=== PATIENT | male | born 1940 | race Two or more races ===

== ENCOUNTER 2017-10-15 04:47 | Inpatient (IN) | payer MEDICARE, OTHER ==
[2017-10-15] VITALS: BP 116/47
[~2017-10-15] VITALS: Ht 165.1 cm; Wt 73.7 kg
[2017-10-15 07:30] VITALS: BP 105/55
[2017-10-15] MEDS ORDERED: ATOR80TA PO (07:57)
[2017-10-15] MEDS ORDERED: SEVE800T8 PO (07:57)
[2017-10-15] MEDS ORDERED: ASPI-1169 PO (07:57)
[2017-10-15] MEDS ORDERED: OMEP20TA5 PO (07:57)
[2017-10-15] MEDS ORDERED: METO25TA6 PO (07:57)
--- NOTE | 2017-10-15 08:44 | NUR ---
STEEL HANDLER ADMITTING NOTES PATIENT ADMITTED DIRECTLY FROM [facility] VIA [facility] ACCOMPANIED BY PARAMEDICS AND DAUGHTER. A/O X 3. VERBALLY RESPONSIVE WITH NO C/O PAIN OR DISCOMFORTS VOICED. ORIENTED PT TO UNIT. 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 V/S TAKEN AND RECORDED: 105/55, P 105, T 98F, R 18. PT ON ROOM AIR, BREATHING EVEN AND UNLABORED WITH SP02 OF 99%. PT PLACED ON TELE-MONITORING WITH CURRENT READING OF V-PACING WITH HR OF 92, NO C/O CHEST PAIN, HEADACHE, N&V VOICED. PT NOTED WITH LESION/WOUND ON LCW WITH NO DRAINAGE NOTED AT THIS TIME. PT WITH IV ACCESS ON LFA INTACT AND PATENT. AV SHUNT NOTED ON RFA WITH + BRUIT SOUND, NO DRAINAGE OR BLEEDING NOTED. SAFETY MEASURES INITIATED. BED PLACED ON LOW/LOCKED POSITION WITH SIDE-RAILS UP X2. CALL LIGHT PLACED WITHIN REACH. WILL CONTINUE TO ASSESS AND MONITOR PT.
[2017-10-15] MEDS ORDERED: ACETAMINOPHEN 325 MG TABLET PO PRN (09:00)
[2017-10-15] MEDS ORDERED: Z GUARD REMEDY 2 OZ OINT TP PRN (09:00)
[2017-10-15 09:53] LABS: BASOPHILS % (AUTO) 0.7 % (0.0-2.0); HEMATOCRIT 30 % (39-51); HEMOGLOBIN 10.2 g/dL (13.5-17.5); LYMPHOCYTES # (AUTO) 1.4 /CMM (0.8-4.8); LYMPHOCYTES % (AUTO) 25.8 % (20.0-44.0); MEAN CORPUSCULAR HGB CONC 34 g/dl (31.0-36.0); MEAN CORPUSCULAR VOLUME 98 fL (80-96); MONOCYTES # (AUTO) 0.4 /CMM (0.1-1.30); MONOCYTES % (AUTO) 8.2 % (2.0-12.0); NEUTROPHILS # (AUTO) 3.1 /CMM (1.8-8.9); NEUTROPHILS % (AUTO) 58.3 % (43.0-81.0); PLATELET COUNT (AUTO) 147 /CMM (150-450); RDW COEFFICIENT OF VARIATION 15.8 (11.5-15.0); RED BLOOD CELL COUNT(AUTO) 3.04 MIL/uL (4.5-6.0); WHITE BLOOD COUNT (AUTO) 5.3 K/uL (4.3-11.0)
[2017-10-15 10:07] LABS: TROPONIN I 0.018 ng/mL (0.00-0.056)
[2017-10-15 10:08] LABS: ALANINE AMINOTRANSFERASE 16 U/L (12-78); ALBUMIN 2.8 g/dL (3.4-5.0); ALKALINE PHOSPHATASE 158 U/L (46-116); ASPARTATE AMINOTRANSFERASE 22 U/L (15-37); BILIRUBIN,TOTAL 0.7 mg/dL (0.2-1.0); CALCIUM, SERUM 8.7 mg/dL (8.5-10.1); CARBON DIOXIDE 35 mmol/L (21-32); CHLORIDE 95 mmol/L (98-107); CREATININE 5.3 mg/dL (0.6-1.3); GLUCOSE 85 mg/dL (74-106); MAGNESIUM 2.1 mg/dL (1.8-2.4); PHOSPHORUS 4.9 mg/dL (2.5-4.9); POTASSIUM 3.9 mmol/L (3.5-5.1); SODIUM SERUM 136 mmol/L (136-145); TOTAL PROTEIN, SERUM 8.6 g/dL (6.4-8.2); UREA NITROGEN, BLOOD 28 mg/dL (7-18)
[2017-10-15 10:14] LABS: CHOLESTEROL 125 mg/dL (<200); HDL CHOLESTEROL 36 mg/dL (40-60); LDL 82 mg/dL (0-99); THYROID STIMULATING HORMONE 0.969 uIU/mL (0.358-3.74); TRIGLYCERIDES 65 mg/dL (30-150)
[2017-10-15] MEDS ORDERED: IOHEXOL-300 100 ML VIAL IV ONE (11:46)
[2017-10-15] MEDS ORDERED: IV NS 0.9% 250 ML IV ONE (11:47)
[2017-10-15] MEDS ORDERED: CT SWABBABLE VALVE TRANS SET 1 EA INFUS.SET MC ONE (11:47)
[2017-10-15 12:00] VITALS: BP 108/60
[2017-10-15] MEDS ORDERED: PIPERACILLIN /TAZOBACTAM 3.375 G in IV D5W 50 ML IV SCH (12:00)
--- NOTE | 2017-10-15 12:17 | NUR ---
RN NOTES PATIENT ON HEMODIALYSIS IN PROGRESS AT THIS TIME. PRE V/S TAKEN; BP 94/52, P 83, R 18, T 97.8F AND SP02 98%. WILL CONTINUE TO MONITOR.
[2017-10-15] MEDS ORDERED: FEE PK DOSING 1 MIN EA MC ONE (12:58)
[2017-10-15] MEDS: SEVELAMER CARBONATE 800 MG TABLET PO SCH ×2 (13:14→17:51)
[2017-10-15] MEDS: PIPERACILLIN /TAZOBACTAM 2.25 G in IV D5W 50 ML IV SCH ×2 (13:32→20:18)
--- NOTE | 2017-10-15 13:51 | NUR ---
RN NOTES PATIENT SEEN AND EVALUATED BY LASHAY DANIELS AND DID LEFT CHEST WALL DEBRIDEMENT WITH CONSENT FROM PT. (CONSENT SIGNED BY PT). WOUND SPECIMEN ALSO COLLECTED FOR WOUND CULTURE. WILL CONTINUE TO MONITOR.
[2017-10-15] MEDS ORDERED: VANCOMYCIN 1 GM in IV D5W 250 ML IV ONE (14:00)
[2017-10-15] MEDS ORDERED: HYDROCODONE/APAP 5/325MG 1 EACH TABLET PO PRN (15:00)
--- NOTE | 2017-10-15 15:26 | NUR ---
RN NOTES HEMODIALYSIS JUST FINISHED WITH 1,000ML OUTPUT. POST HD V/S : 122/51, P 85, R 18, T 97.8RF. NO ACUTE SIGNS OF DISTRESS NOTED. DRESSING APPLIED TO AV SHUNT ON RIGHT UPPER ARM BY DIALYSIS NURSE, NO BLEEDING NOTED. WILL CONTINUE TO MONITOR.
[2017-10-15 16:00] VITALS: BP 98/60
[2017-10-15] MEDS: METOPROLOL TARTRATE 25 MG TABLET PO SCH (16:52)
[2017-10-15] MEDS: DOCUSATE SODIUM 100 MG CAPSULE PO SCH (16:53)
--- NOTE | 2017-10-15 18:37 | NUR ---
TELE/RN CLOSING NOTES PATIENT AWAKE AND RESTING IN BED WITH FAMILY AT BEDSIDE AT THIS TIME. A/O X3. GERMAN SPEAKING. S/P HEMODIALYSIS TODAY, NO DELAYED ADVERSE REACTIONS NOTED. ON ROOM AIR, RESPIRATIONS EVEN AND UNLABORED, NO SOB NOTED. ON TELE- MONITORING WITH CURRENT READING OF V-PACING AND AFIB WITH HR OF 78. IV ACCESS ON LEFT FA G#20 INTACT AND PATENT, FLUSHES EASILY. HOB KEPT ELEVATED. MAINTAINED BED IN LOW/LOCKED POSITION. CALL LIGHT WITHIN REACH. ALL NEEDS AND CARE ATTENDED WELL. WILL ENDORSED TO CONSTRUCTION SECRETARY NURSE FOR ELSIE.
--- NOTE | 2017-10-15 19:35 | NUR ---
POWER PLANT OPERATORS SUPERVISOR INITIAL NOTE PT IS IN BED AWAKE AND ALERT. FAMILY AT BEDSIDE. NO SIGNS OF SOB OR DISTRESS, BREATHING EVENLY AND UNLABORED ON RA. DEBRIDEMENT AND DRESSING CHANGED WAS DONE BY KATHY DANIELS TODAY, DRESSING IS INTACT WITH NO SIGNS OF LEAKAGE. IV ACCESS IS INTACT AND PATENT. KAYLA AV SHUNT IN PLACE. PT HAD HD TODAY AND 1,000 ML WERE TAKEN OUT. DENIES PAIN AT THIS TIME. BED IS IN LOW AND LOCKED POSITION, CALL LIGHT WITHIN REACH. WILL CONTINUE TO MONITOR PT.
[2017-10-15 20:00] VITALS: BP 92/51
[2017-10-16] VITALS (7 sets, daily range): BP systolic 102–120; BP diastolic 47–70
[2017-10-16] MEDS: PIPERACILLIN /TAZOBACTAM 2.25 G in IV D5W 50 ML IV SCH ×2 (04:37→12:26)
--- NOTE | 2017-10-16 06:32 | NUR ---
WRAPPER SIZER CLOSING NOTE PT IS IN BED RESTING. NO SIGNS OF SOB OR DISTRESS. DENIES PAIN. TELE MONITOR SHOWS A FIB WITH V PACING AT 85. NO ACUTE CHANGES THROUGHOUT THE SHIFT. ALL NEEDS WERE ANTICIPATED AND MET. BED IS IN LOW AND LOCKED POSITION, CALL LIGHT WITHIN REACH. WILL ENDORSE TO DAYSHIFT
[2017-10-16 07:15] LABS: BASOPHILS % (AUTO) 0.8 % (0.0-2.0); EOSINOPHILS % (AUTO) 9.2 % (0.0-6.0); HEMATOCRIT 31 % (39-51); HEMOGLOBIN 10.3 g/dL (13.5-17.5); LYMPHOCYTES # (AUTO) 1.3 /CMM (0.8-4.8); LYMPHOCYTES % (AUTO) 23.5 % (20.0-44.0); MEAN CORPUSCULAR HGB CONC 33 g/dl (31.0-36.0); MEAN CORPUSCULAR VOLUME 99 fL (80-96); MONOCYTES # (AUTO) 0.5 /CMM (0.1-1.30); MONOCYTES % (AUTO) 8.7 % (2.0-12.0); NEUTROPHILS # (AUTO) 3.2 /CMM (1.8-8.9); NEUTROPHILS % (AUTO) 57.8 % (43.0-81.0); PLATELET COUNT (AUTO) 141 /CMM (150-450); RDW COEFFICIENT OF VARIATION 17.1 (11.5-15.0); RED BLOOD CELL COUNT(AUTO) 3.12 MIL/uL (4.5-6.0); WHITE BLOOD COUNT (AUTO) 5.6 K/uL (4.3-11.0)
[2017-10-16 07:19] LABS: CALCIUM, SERUM 8.6 mg/dL (8.5-10.1); CARBON DIOXIDE 31 mmol/L (21-32); CHLORIDE 96 mmol/L (98-107); CREATININE 5.2 mg/dL (0.6-1.3); GLUCOSE 89 mg/dL (74-106); POTASSIUM 4.2 mmol/L (3.5-5.1); SODIUM SERUM 135 mmol/L (136-145); UREA NITROGEN, BLOOD 27 mg/dL (7-18)
--- NOTE | 2017-10-16 07:25 | NUR ---
TELE/RN OPENING NOTES PATIENT RECEIVED AWAKE IN BED IN NO ACUTE SIGNS OF DISTRESS. A/O X3, KISWAHILI SPEAKING, DENIES PAIN OR DISCOMFORTS AT THIS TIME. ON ROOM AIR, RESPIRATIONS EVEN AND UNLABORED. PT ON TELE- MONITORING WITH CURRENT READING OF V-PACING AND AFIB WITH HR OF 91. DRESSING ON LCW IN PLACE, CLEAN AND DRY. KAYLA AV SHUNT IN PLACE. IV ACCESS ON LEFT FA G#20 INTACT AND PATENT, FLUSHES EASILY. HOB KEPT ELEVATED. BED IN LOW/LOCKED POSITION. CALL LIGHT WITHIN REACH. WILL CONTINUE TO MONITOR PT.
[2017-10-16] MEDS: PANTOPRAZOLE 40 MG TABLET.DR PO SCH (08:00)
[2017-10-16] MEDS: SEVELAMER CARBONATE 800 MG TABLET PO SCH ×3 (08:00→17:35)
[2017-10-16] MEDS: DOCUSATE SODIUM 100 MG CAPSULE PO SCH ×2 (08:05→16:46)
[2017-10-16] MEDS: ASPIRIN 81 MG TAB.CHEW PO SCH (08:05)
[2017-10-16] MEDS: METOPROLOL TARTRATE 25 MG TABLET PO SCH ×2 (08:06→16:47)
[2017-10-16] MEDS ORDERED: VANCOMYCIN 500 MG in IV D5W 100 ML IV PRN (09:00)
--- NOTE | 2017-10-16 18:11 | NUR ---
MS RN CLOSING NOTES PATIENT IN BED RESTING AT MODERATE HIGH BACKREST. FAMILY AT BEDSIDE. A/O X3. DJIBOUTIAN SPEAKING. NO SIGNIFICANT CHANGES NOTED THROUGHOUT THE DAY. PT TOLERATING ROOM AIR WITH NO SOB NOTED. IV ACCESS ON LEFT FA G#20 INTACT AND PATENT, FLUSHES EASILY. HOB KEPT ELEVATED. MAINTAINED BED IN LOW/LOCKED POSITION. CALL LIGHT WITHIN REACH. ALL NEEDS AND CARE ATTENDED WELL. WILL ENDORSED TO PROJECT ADMINISTRATOR NURSE FOR ELSIE.
[2017-10-16] MEDS: ATORVASTATIN 40 MG TABLET PO SCH (21:03)
[2017-10-17] MEDS: HYDROCODONE/APAP 5/325MG 1 EACH TABLET PO PRN (00:36)
[2017-10-17] MEDS: MAGNESIUM HYDROXIDE 30 ML UDC PO PRN ×2 (00:36→21:43)
--- NOTE | 2017-10-17 06:06 | NUR ---
MS RN NOTES AWAKE & RESPONSIVE. NOT IN ANY DISTRESS. NO SOB NOTED. DENIES ANY PAIN OR DISCOMFORT AT THIS TIME. WITH IV-HL PATENT & INTACT. MONITORED ACCORDINGLY. CALL LIGHT WITH REACH. BED IN LOWEST POSITION. SR UP X 2 FOR SAFETY. WILL ENDORSE TO NEXT SHIFT.
[2017-10-17 07:12] LABS: CALCIUM, SERUM 8.5 mg/dL (8.5-10.1); CARBON DIOXIDE 30 mmol/L (21-32); CHLORIDE 94 mmol/L (98-107); CREATININE 6.8 mg/dL (0.6-1.3); GLUCOSE 82 mg/dL (74-106); POTASSIUM 4.6 mmol/L (3.5-5.1); SODIUM SERUM 133 mmol/L (136-145); UREA NITROGEN, BLOOD 37 mg/dL (7-18)
--- NOTE | 2017-10-17 07:19 | NUR ---
MS RN OPENING NOTE PATIENT RESTING COMFORTABLY AT THIS TIME. NO SOB OR DISTRESS NOTED. NO FACIAL GRIMACING NOTED. ABLE TO COMMUNICATE NEEDS. ON ROOM AIR TOLERATING WELL. IV ON LEFT FOREARM 20G INTACT AND PATENT NO REDNESS OR SWELLING NOTED, NO IV FLUIDS RUNNING AT THIS TIME. HEMODIALYSIS TODAY. WILL CONTINUE TO MONITOR THROUGHOUT SHIFT
[2017-10-17 08:00] VITALS: BP 107/59
[2017-10-17] MEDS: SEVELAMER CARBONATE 800 MG TABLET PO SCH ×3 (08:41→17:33)
[2017-10-17] MEDS: DOCUSATE SODIUM 100 MG CAPSULE PO SCH ×2 (08:42→17:33)
[2017-10-17] MEDS: ASPIRIN 81 MG TAB.CHEW PO SCH (08:42)
[2017-10-17] MEDS: METOPROLOL TARTRATE 25 MG TABLET PO SCH ×2 (08:42→17:34)
[2017-10-17] MEDS: PANTOPRAZOLE 40 MG TABLET.DR PO SCH (08:42)
--- NOTE | 2017-10-17 08:49 | NUR ---
MS RN NOTE ASA HELD DUE TO HEMODIALYSIS AND METOPROLOL NOT GIVEN DUE TO DECREASED BP: 107/56 P:62. AWARE. WILL CONTINUE TO MONITOR
--- NOTE | 2017-10-17 13:08 | NUR ---
MS RN NOTE UNABLE TO GIVE MEDICATION AT SCHEDULED TIME DUE TO PATIENT RECEIVING HEMODIALYSIS.
--- NOTE | 2017-10-17 13:24 | NUR ---
MS RN NOTE CALLED DR. WILLIS FOR EPOGEN ORDER. EPOGEN 4,000 UNITS SUBQ x1 WITH HD. ORDERS NOTED AND CARRIED OUT.
[2017-10-17] MEDS ORDERED: EPOETIN ALFA (4000 UNIT) 4,000 UNIT/ML VIAL SQ ONE (13:30)
--- NOTE | 2017-10-17 14:30 | NUR ---
MS RN NOTE WOUND TREATMENT DONE FOR SCALP AND LEFT CHEST WALL PACEMAKER AREA. CLEANED, AND KEPT DRY.
--- NOTE | 2017-10-17 15:40 | NUR ---
RECEIVED REPORT FROM PRIMARY NURSE FOR ELSIE
--- NOTE | 2017-10-17 15:48 | NUR ---
MS RN CLOSING NOTE REPORT GIVEN TO CHENCHO CARIAS FOR CONTINUITY OF CARE. PATIENT IN STABLE CONDITION AND RESTING AT THIS TIME
[2017-10-17 17:00] VITALS: BP 107/58
--- NOTE | 2017-10-17 18:42 | NUR ---
MS RN CLOSING NOTE PATIENT IS A/O X3, AWAKE AND RESPONSIVE. KINYARWANDA SPEAKING. PATIENT IS IN IN BED. BED IS LOCKED, IN LOWEST POSITION, SITE RAILS UP X2. PATIE T IS AMBULATORY AND ORIENTED TO OWN ABILITIES. DENIES PAIN/DISCOMFORT. WILL ENDORSE TO THE SEO STRATEGIST NORSE FOR ELSIE.
[2017-10-17 20:00] VITALS: BP 103/60
[2017-10-17] MEDS: ATORVASTATIN 40 MG TABLET PO SCH (21:07)
[2017-10-18] MEDS: HYDROCODONE/APAP 5/325MG 1 EACH TABLET PO PRN (00:55)
--- NOTE | 2017-10-18 07:10 | NUR ---
RN NOTES PATIENT ASLEEP BUT EASILY AROUSABLE. NO SOB OR DISTRESS NOTED. NO FACIAL GRIMACING NOTED. ABLE TO COMMUNICATE NEEDS. ON ROOM AIR TOLERATING WELL. IV ON LEFT FOREARM 20G INTACT AND PATENT NO REDNESS OR SWELLING NOTED, NO IV FLUIDS RUNNING AT THIS TIME. CALL LIGHT WITHIN REACH, SAFETY MEASURES IN PLACED, WILL CONTINUE TO MONITOR.
[2017-10-18 08:00] VITALS: BP 105/51
[2017-10-18 08:12] VITALS: BP 105/51
[2017-10-18] MEDS: METOPROLOL TARTRATE 25 MG TABLET PO SCH (08:12)
[2017-10-18] MEDS: PANTOPRAZOLE 40 MG TABLET.DR PO SCH (08:48)
[2017-10-18] MEDS: ASPIRIN 81 MG TAB.CHEW PO SCH (08:49)
[2017-10-18] MEDS: DOCUSATE SODIUM 100 MG CAPSULE PO SCH (08:49)
[2017-10-18] MEDS: SEVELAMER CARBONATE 800 MG TABLET PO SCH ×2 (08:49→12:44)
[2017-10-18] MEDS ORDERED: RXVAN XX (11:01)
--- NOTE | 2017-10-18 11:49 | NUR ---
WOUND CARE CONSULT WOUND CARE RECEIVED CONSULT FOR PRESENCE OF WOUNDS. WOUND CARE WILL DEFER CONSULT AND ALL TREATMENT PLANS TO SURGICAL TEAM WHO ARE CURRENTLY FOLLOWING. PATIENT WITH TINO AT 19.
--- NOTE | 2017-10-18 13:25 | NUR ---
POWER MACHINE OPERATOR NOTE PATIENT A/OX3, GREEK SPEAKING, MASS SPECTROSCOPIST TRANSLATED FOR DISCHARGE INSTRUCTIONS, PATIENT VERBALIZED UNDERSTANDING OF FOLLOW UP APPOINTMENTS, AND WOUND TREATMENT AND MEDICATION REGIMEN. PLACED A CALL TO DAUGHTER, LEFT A MESSAGE. SKIN ASSESSMENT COMPLETED, NO CHANGES, PHOTOS TAKEN LAST NIGHT, WOUND TREATMENT RENDERED ORDERED, HOME HEALTH HAS BEEN SET UP BY REGULATORY AFFAIRS INTERN, MIDLINE INSERTED ON YASEMIN #20 FOR HALF-WAY ANTIBIOTIC X7 DOSE PER DR. TORRE, PHARMACY TO DOSE. PIV ON LFA REMOVED, KEPT MIDLINE. BELONGINGS RECONCILED AND COMPLETE, ALL DISCHARGE PAPERWORKS SENT TO PATIENT. PATIENT LEFT THE FACILITY VIA TAXI IN NO DISTRESS.
== END 2017-10-18 13:20 | disposition home health service (06) | DRG 570 ==
LOC: EDSEX → TELE 07:00 → MED 10-16 09:09
PROVIDERS: ADMIT Internal Medicine; ATTEND Internal Medicine
PROC: 0JB60ZZ Excision of Chest Subcutaneous Tissue and Fascia, Open Approach (ICD-10-PCS; principal; 2017-10-15)
PROC: 5A1D70Z Performance of Urinary Filtration, Intermittent, Less than 6 Hours Per Day (ICD-10-PCS; 2017-10-15)
PROC: 5A1D70Z Performance of Urinary Filtration, Intermittent, Less than 6 Hours Per Day (ICD-10-PCS; 2017-10-17)
PROC: 05H633Z Insertion of Infusion Device into Left Subclavian Vein, Percutaneous Approach (ICD-10-PCS; 2017-10-18)
PROC: B547ZZA Ultrasonography of Left Subclavian Vein, Guidance (ICD-10-PCS; 2017-10-18)
DX: L08.9 Local infection of the skin and subcutaneous tissue, unspecified (principal); N18.6 End stage renal disease; E44.0 Moderate protein-calorie malnutrition; D69.6 Thrombocytopenia, unspecified; E88.09 Other disorders of plasma-protein metabolism, not elsewhere classified; I12.0 Hypertensive chronic kidney disease with stage 5 chronic kidney disease or end stage renal disease; E83.9 Disorder of mineral metabolism, unspecified; I48.92 Unspecified atrial flutter; S21.102A Unspecified open wound of left front wall of thorax without penetration into thoracic cavity, initial encounter; K59.00 Constipation, unspecified; D63.1 Anemia in chronic kidney disease; E78.5 Hyperlipidemia, unspecified; F17.210 Nicotine dependence, cigarettes, uncomplicated; Z95.0 Presence of cardiac pacemaker; Z99.2 Dependence on renal dialysis; S01.00XA Unspecified open wound of scalp, initial encounter; X58.XXXA Exposure to other specified factors, initial encounter; Y93.9 Activity, unspecified; Y92.009 Unspecified place in unspecified non-institutional (private) residence as the place of occurrence of the external cause; Z68.27 Body mass index [BMI] 27.0-27.9, adult; I51.7 Cardiomegaly
CPT/HCPCS: 36415; 36569; 71045-TC; 71260-TC; 80048-TC; 80053-TC; 80061-TC; 80202-TC; 83605-TC; 83735-TC; 84100-TC; 84443-TC; 84484-TC; 85025-TC; 87040-TC; 87070-TC; 87081-TC; 90935-TC; 93307-TC; A6402; A6403; A6407; J0885; J2543; J3370; J7050; J7060; Q9967

== ENCOUNTER 2017-10-19 13:10 | Outpatient (CLI) | payer MEDICARE, OTHER ==
[~2017-10-19 13:10] MED LIST: ASPI-1169 PO; ATOR80TA PO; METO25TA6 PO; OMEP20TA5 PO; RXVAN XX; SEVE800T8 PO
== END 2017-10-19 23:59 | disposition home or self-care (01) ==
LOC: MSC 13:10
PROVIDERS: ATTEND Internal Medicine
DX: Z48.817 Encounter for surgical aftercare following surgery on the skin and subcutaneous tissue (principal); Z95.0 Presence of cardiac pacemaker; I12.0 Hypertensive chronic kidney disease with stage 5 chronic kidney disease or end stage renal disease; N18.6 End stage renal disease; Z99.2 Dependence on renal dialysis; F17.200 Nicotine dependence, unspecified, uncomplicated; L98.9 Disorder of the skin and subcutaneous tissue, unspecified; I48.92 Unspecified atrial flutter; Z79.82 Long term (current) use of aspirin; D64.89 Other specified anemias; E78.5 Hyperlipidemia, unspecified; E44.0 Moderate protein-calorie malnutrition; E88.09 Other disorders of plasma-protein metabolism, not elsewhere classified

== ENCOUNTER 2017-10-21 12:27 | Outpatient (CLI) | payer MEDICARE, OTHER ==
[2017-10-19 13:15] VITALS: BP 152/37
== END 2017-10-21 23:59 | disposition home or self-care (01) ==
LOC: WOU 12:27
PROVIDERS: ATTEND Surgery
DX: C44.42 Squamous cell carcinoma of skin of scalp and neck (principal); S01.01XA Laceration without foreign body of scalp, initial encounter; L02.213 Cutaneous abscess of chest wall; X58.XXXA Exposure to other specified factors, initial encounter; Y92.89 Other specified places as the place of occurrence of the external cause
CPT/HCPCS: 11043; 11100; 11101; 88305 ×2; A6402; J3490

== ENCOUNTER 2017-10-28 12:30 | Outpatient (CLI) | payer MEDICARE, OTHER | END 2017-10-28 23:59 | disposition home health service (06) | LOC: WOU 12:30 | PROVIDERS: ATTEND Surgery | DX: S01.01XD Laceration without foreign body of scalp, subsequent encounter (principal); C44.42 Squamous cell carcinoma of skin of scalp and neck; L02.213 Cutaneous abscess of chest wall; R21 Rash and other nonspecific skin eruption; X58.XXXD Exposure to other specified factors, subsequent encounter; Y92.89 Other specified places as the place of occurrence of the external cause; Z95.0 Presence of cardiac pacemaker | CPT/HCPCS: A6402; G0463 ==

== ENCOUNTER 2017-11-18 13:00 | Outpatient (CLI) | payer MEDICARE, OTHER | END 2017-11-18 23:59 | disposition home health service (06) | LOC: WOU 13:00 | PROVIDERS: ATTEND Surgery | DX: C44.42 Squamous cell carcinoma of skin of scalp and neck (principal); T82.7XXD Infection and inflammatory reaction due to other cardiac and vascular devices, implants and grafts, subsequent encounter; L02.213 Cutaneous abscess of chest wall | CPT/HCPCS: A6402; G0463 ==

== ENCOUNTER 2017-11-25 12:36 | Outpatient (CLI) | payer MEDICARE, OTHER | END 2017-11-25 23:59 | disposition home or self-care (01) | LOC: WOU 12:36 | PROVIDERS: ATTEND Surgery | DX: C44.42 Squamous cell carcinoma of skin of scalp and neck (principal); T82.7XXD Infection and inflammatory reaction due to other cardiac and vascular devices, implants and grafts, subsequent encounter; R21 Rash and other nonspecific skin eruption | CPT/HCPCS: A6402; G0463 ==

== ENCOUNTER 2017-11-26 10:20 | Outpatient (CLI) | payer MEDICARE, OTHER ==
[2017-11-26 10:52] LABS: BASOPHILS % (AUTO) 0.3 % (0.0-2.0); HEMATOCRIT 32 % (39-51); HEMOGLOBIN 10.3 g/dL (13.5-17.5); LYMPHOCYTES # (AUTO) 1.6 /CMM (0.8-4.8); LYMPHOCYTES % (AUTO) 26.2 % (20.0-44.0); MEAN CORPUSCULAR HGB CONC 32 g/dl (31.0-36.0); MEAN CORPUSCULAR VOLUME 101 fL (80-96); MONOCYTES # (AUTO) 0.5 /CMM (0.1-1.30); MONOCYTES % (AUTO) 7.5 % (2.0-12.0); NEUTROPHILS # (AUTO) 3.6 /CMM (1.8-8.9); PLATELET COUNT (AUTO) 202 /CMM (150-450); RDW COEFFICIENT OF VARIATION 17.8 (11.5-15.0); RED BLOOD CELL COUNT(AUTO) 3.16 MIL/uL (4.5-6.0); WHITE BLOOD COUNT (AUTO) 6.3 K/uL (4.3-11.0)
[2017-11-26 11:04] LABS: INR 1.14 (0.87-1.13)
[2017-11-26 11:06] LABS: CALCIUM, SERUM 8.9 mg/dL (8.5-10.1); CARBON DIOXIDE 28 mmol/L (21-32); CHLORIDE 99 mmol/L (98-107); CREATININE 6.7 mg/dL (0.6-1.3); GLUCOSE 113 mg/dL (74-106); POTASSIUM 4.5 mmol/L (3.5-5.1); SODIUM SERUM 137 mmol/L (136-145); UREA NITROGEN, BLOOD 45 mg/dL (7-18)
== END 2017-11-26 23:59 | disposition home or self-care (01) ==
LOC: LAB 10:20
PROVIDERS: ATTEND Surgery
DX: Z01.818 Encounter for other preprocedural examination (principal); C44.40 Unspecified malignant neoplasm of skin of scalp and neck; R94.31 Abnormal electrocardiogram [ECG] [EKG]
CPT/HCPCS: 36415; 71046; 80048-TC; 85025-TC; 85730-TC

== ENCOUNTER 2017-12-02 05:53 | Inpatient (IN) | payer MEDICARE, OTHER ==
[~2017-12-02] VITALS: Ht 152.4 cm; Wt 73.9 kg
--- NOTE | 2017-12-02 06:21 | NUR ---
RN MS NOTES PATIENT IS HERE FOR RESECTION OF SCALP CANCER AMD VAC PLACEMENT, VITAL SIGNS OBTAINED WNL NO DISTRESS, RESPIRATIONS EVEN AND UNLABORED, AMBULATORY CONSENTS SIGNED BY PATIENT, REMAINS IN STABLE CONDITION AT THIS TIME, WILL CONTINUE TO ENDORSE TO NEXT SHIFT.
[2017-12-02 07:08] VITALS: BP 105/56
[2017-12-02] MEDS ORDERED: BUPIVACAINE 0.25% 75 MG/30 ML VIAL ONE (07:19)
[2017-12-02] MEDS ORDERED: LIDOCAINE 0.5%-EPI 1:200,000 50 ML VIAL ONE (07:19)
--- NOTE | 2017-12-02 07:25 | NUR ---
M/S RN - Assessment Patient in bed awake, A/O x 3, denies pain, no apparent distress seen. Patient NPO since midnight for scheduled resection of scalp carcinoma and vac placement and resection of left upper ext mass with Dr. Franklin Jimenez. Consent signed by the patient. Attempted to place saline lock at this time but unsuccessful due to poor peripheral veins, will endorse to OR nurse accordingly. Family at bedside updated on plan of care.
--- NOTE | 2017-12-02 07:35 | NUR ---
M/S RN - Notes Patient taken to OR, pre-op checklist completed, vitals stable, endorsed to accordingly.
[2017-12-02] MEDS ORDERED: ANESTHESIA TRAY IN PYXIS 1 EA TRAY MC ONE (08:09)
[2017-12-02] MEDS ORDERED: SEVOFLURANE 250 ML BOTTLE IH ONE (08:46)
[2017-12-02 10:54] LABS: ABG BASE EXCESS -4.9 mmol/L; ABG OXYGEN SATURATION 97.4 % (92.0-98.5); ABG PCO2 65.7 mmHg (35.0-45.0); ABG PH 7.185 (7.350-7.450); ABG PO2 136.7 mmHg (75.0-100.0); AaDO2 218.8 mmHg; COHb 0.3 % (0.5-1.5); MetHb 0.8 % (0.0-1.5); O2Hb 96.3 % (94.0-97.0); SITE, ABG Left Brachial; VENT MODE, BG 10/L SIMPLE MASK
[2017-12-02] MEDS ORDERED: HYDROCODONE/APAP 5/325MG 1 EACH TABLET PO PRN (11:00)
[2017-12-02] MEDS ORDERED: ACETAMINOPHEN 325 MG TABLET PO PRN (11:00)
[2017-12-02] MEDS ORDERED: Z GUARD REMEDY 2 OZ OINT TP PRN (11:00)
[2017-12-02] MEDS ORDERED: MAG HYDROX/AL HYDROX/SIMETH 30 ML UDC PO PRN (11:00)
[2017-12-02] MEDS ORDERED: ONDANSETRON HCL/PF 4 MG/2 ML VIAL IVP PRN (11:00)
[2017-12-02 11:30] VITALS: BP 149/68
--- NOTE | 2017-12-02 11:30 | NUR ---
M/S RN - Notes Patient came back from PACU awake, A/O x 3, denies pain, no apparent distress seen, tolerating room air. S/P resection of scalp lesion and LFA mass. Right head wound vac in place, dressing on the LFA is C/D/I. Dressing change to be done by Md only, unable to take photo at this time. Vital signs monitored per protocol. Per OR report, pt with critical ABG result, relayed to LASHAY Damian with order to do repeat ABG. All orders noted and implemented. Will continue to monitor closely.
[2017-12-02 12:24] LABS: ABG BASE EXCESS 2.4 mmol/L; ABG PCO2 50.3 mmHg (35.0-45.0); ABG PH 7.369 (7.350-7.450); ABG PO2 96.5 mmHg (75.0-100.0); AaDO2 43.8 mmHg; COHb 0.3 % (0.5-1.5); MetHb 0.8 % (0.0-1.5); O2Hb 94.9 % (94.0-97.0); SITE, ABG Left Brachial; VENT MODE, BG NASAL CANNULA
[2017-12-02 16:00] VITALS: BP 119/54
--- NOTE | 2017-12-02 18:49 | NUR ---
AUTO CLAIM REPRESENTATIVE CLOSING NOTES Patient remains in bed, easily arousable. Croatian language preferrence. Famiy at bedside. Hemodialysis treatment done with 1L output: patient tolerated well. TELE monitor shows Afib; HR 99. No complaints of any pain or discomfort. Safety measures in place. Bed in lowest position with call light within reach. Will endorse to oncoming shift nurse.
--- NOTE | 2017-12-02 20:00 | NUR ---
RN NOTES RECEIVED PATIENT IN BED, ALERT AND ORIENTED X3, CALM, NO SOB, NO DISTRESS, DENIES ANY PAIN AT THIS TIME, S/P RESECTION OF SCALP WITH ATTACHED WOUND VAC, DRESSING IS DRY AND INTACT, WOUND VAC DRAINING WITH SEROSANGUINEOUS FLUID, KEPT HOB ELEVATED, RIGHT UPPER ARM FISTULA SECURED WITH DRESSING, NO BLEEDING, NEEDS ATTENDED, CALL LIGHT WITHIN REACH.
[2017-12-02 20:15] VITALS: BP 111/49
[2017-12-02 21:07] VITALS: BP 111/49
[2017-12-03] VITALS: BP_SYST 109; BP_DIAS 51; BP_DIAS 57
[2017-12-03 04:00] VITALS: BP_SYST 111; BP_DIAS 4; BP_DIAS 54
--- NOTE | 2017-12-03 07:02 | NUR ---
RN NOTES PATIENT IS ALERT AND ORIENTED X3, NO SOB, NO COMPLAIN OF PAIN, DRESSING TO SCALP IS DRY AND INTACT, WOUND VAC IN GOOD WORKING CONDITION, SCANT DRAINAGE, KEPT HOB ELEVATED, V/S WNL, ALL NEEDS ATTENDED, CALL LIGHT WITHIN REACH.
[2017-12-03 07:11] LABS: BASOPHILS % (AUTO) 0.4 % (0.0-2.0); EOSINOPHILS % (AUTO) 2.5 % (0.0-6.0); HEMATOCRIT 30 % (39-51); HEMOGLOBIN 9.9 g/dL (13.5-17.5); LYMPHOCYTES # (AUTO) 1.5 /CMM (0.8-4.8); LYMPHOCYTES % (AUTO) 21.9 % (20.0-44.0); MEAN CORPUSCULAR HGB CONC 33 g/dl (31.0-36.0); MEAN CORPUSCULAR VOLUME 102 fL (80-96); MONOCYTES # (AUTO) 0.5 /CMM (0.1-1.30); MONOCYTES % (AUTO) 6.7 % (2.0-12.0); NEUTROPHILS # (AUTO) 4.7 /CMM (1.8-8.9); NEUTROPHILS % (AUTO) 68.5 % (43.0-81.0); PLATELET COUNT (AUTO) 132 /CMM (150-450); RDW COEFFICIENT OF VARIATION 17.7 (11.5-15.0); RED BLOOD CELL COUNT(AUTO) 2.99 MIL/uL (4.5-6.0); WHITE BLOOD COUNT (AUTO) 6.9 K/uL (4.3-11.0)
--- NOTE | 2017-12-03 07:33 | NUR ---
MS RN OPENING NOTES RECEIVED PATIENT AWAKE IN BED IN NO ACUTE SIGNS OF DISTRESS. A/O X3. ARABIC SPEAKING, DENIES PAIN OR ANY DISCOMFORTS AT THIS TIME. ON ROOM AIR, BREATHING EVEN AND UNLABORED. S/P RESECTION OF SCALP ( 12/03/2015), DRESSING DRY, CLEAN AND INTACT. WOUND VAC TO SCALP AT 125MMHG PRESSURE IN PLACE AND FUNCTIONING, DRAINING SEROSANGUINEOUS FLUID. HOB KEPT ELEVATED. RIGHT UPPER ARM FISTULA SECURED WITH DRESSING, NO BLEEDING NOTED. IV ACCESS ON RIGHT FOOT G#22 INTACT AND PATENT. BED IN LOW /LOCKED POSITION WITH SIDE RAILS UP X2. ALL SAFETY MEASURES MAINTAINED. WILL CONTINUE TO MONITOR PT.
[2017-12-03 07:40] LABS: CALCIUM, SERUM 8.8 mg/dL (8.5-10.1); CARBON DIOXIDE 28 mmol/L (21-32); CHLORIDE 102 mmol/L (98-107); CHOLESTEROL 110 mg/dL (<200); CREATININE 5.3 mg/dL (0.6-1.3); GLUCOSE 105 mg/dL (74-106); HDL CHOLESTEROL 37 mg/dL (40-60); LDL 65 mg/dL (0-99); MAGNESIUM 2.3 mg/dL (1.8-2.4); PHOSPHORUS 4.2 mg/dL (2.5-4.9); SODIUM SERUM 140 mmol/L (136-145); THYROID STIMULATING HORMONE 0.163 uIU/mL (0.358-3.74); TRIGLYCERIDES 80 mg/dL (30-150); UREA NITROGEN, BLOOD 36 mg/dL (7-18)
[2017-12-03 08:00] VITALS: BP 113/80
[2017-12-03] MEDS ORDERED: BISACODYL SUPP (10 MG) 10 MG/SUPP.RECT SUPP.RECT RC PRN (13:00)
[2017-12-03] MEDS: SEVELAMER CARBONATE 800 MG TABLET PO SCH ×2 (13:01→17:30)
[2017-12-03 16:00] VITALS: BP 138/90
--- NOTE | 2017-12-03 18:34 | NUR ---
MS RN CLOSING NOTES PATIENT IN BED AWAKE WITH FAMILY AT BEDSIDE. A/O X3. [place] CITIZEN SPEAKING. NO SIGNIFICANT CHANGES IN STATUS NOTED THROUGHOUT THE DAY. PT TOLERATING ROOM AIR WITH NO SOB NOTED. WOUND VAC TO SCALP @ 125MMHG PRESSURE IN PLACE AND FUNCTIONING, DRAINING SEROSANGUINEOUS FLUID. RIGHT UPPER ARM FISTULA SECURED WITH DRESSING, NO BLEEDING NOTED. IV ACCESS ON RIGHT FOOT G#22 INTACT AND PATENT, FLUSHES EASILY. ALL SAFETY MEASURES KEPT IN PLACE. HOB KEPT ELEVATED. BED IN LOW /LOCKED POSITION WITH SIDE RAILS UP X2. ALL NEEDS AND CARE ATTENDED WELL. WILL ENDORSE TO LOG CHAIN WORKER NURSE FOR ELSIE.
--- NOTE | 2017-12-03 19:00 | NUR ---
MS RN OPENING NOTE RECEIVE PATIENT IS RESTING IN BED, A/O X 3, SLOVAK SPEAKING NO FACIAL GRIMACING NOTED FOR PAIN. NO SOB OR DISTRESS NOTED, CALL LIGHT WITHIN REACH. SAFETY MEASURES IMPLEMENTED. WILL CONTINUE TO MONITOR THROUGHOUT SHIFT.
[2017-12-03 20:00] VITALS: BP 117/73
[2017-12-03] MEDS: MAGNESIUM HYDROXIDE 30 ML UDC PO PRN (21:04)
[2017-12-04] VITALS (7 sets, daily range): BP systolic 96–142; BP diastolic 54–99
--- NOTE | 2017-12-04 06:19 | NUR ---
MS RN CLOSING NOTES PT COMFORTABLY ASLEEP AND EASILY AWAKEN, TOLERATING ROOM AIR 98% STABLE CONDITION, RESPIRATION EVEN AND UNLABORED. KEPT CLEAN AND DRY AND COMFORTABLE, ALL NURSING CARE RENDERED. NEEDS ATTENDED AND ANTICIPATED, WOUND VAC TO SCALP @ 125MMHG PRESSURE IN PLACE DRAINING SEROSANGUINEOUS FLUID. RIGHT UPPER ARM FISTULA DRESSING INTACT NOT SOILED. NO BLEEDING NOTED. GOOD SKIN CARE PROVIDED. FREQUENT VISUAL CHECK DONE FOR SAFETY EVERY 2 HOURS. ON LOW BED AT ALL TIMES TO ENSURE SAFETY. SAFE HAZARD FREE ENVIRONMENT PROVIDED. NO COMPLAINS OF PAIN. CALL LIGHT WITHIN EASY TO REACH. WILL ENDORSE NEXT SHIFT CONTINUITY OF CARE.
[2017-12-04 06:39] LABS: BASOPHILS % (AUTO) 0.5 % (0.0-2.0); EOSINOPHILS % (AUTO) 7.2 % (0.0-6.0); HEMATOCRIT 29 % (39-51); HEMOGLOBIN 9.5 g/dL (13.5-17.5); LYMPHOCYTES # (AUTO) 1.5 /CMM (0.8-4.8); LYMPHOCYTES % (AUTO) 24.9 % (20.0-44.0); MEAN CORPUSCULAR HGB CONC 33 g/dl (31.0-36.0); MEAN CORPUSCULAR VOLUME 101 fL (80-96); MONOCYTES # (AUTO) 0.5 /CMM (0.1-1.30); MONOCYTES % (AUTO) 7.7 % (2.0-12.0); NEUTROPHILS # (AUTO) 3.7 /CMM (1.8-8.9); NEUTROPHILS % (AUTO) 59.7 % (43.0-81.0); PLATELET COUNT (AUTO) 135 /CMM (150-450); RDW COEFFICIENT OF VARIATION 18.3 (11.5-15.0); RED BLOOD CELL COUNT(AUTO) 2.89 MIL/uL (4.5-6.0); WHITE BLOOD COUNT (AUTO) 6.2 K/uL (4.3-11.0)
[2017-12-04 06:53] LABS: CALCIUM, SERUM 8.7 mg/dL (8.5-10.1); CARBON DIOXIDE 28 mmol/L (21-32); CHLORIDE 100 mmol/L (98-107); CREATININE 6.8 mg/dL (0.6-1.3); GLUCOSE 105 mg/dL (74-106); POTASSIUM 4.8 mmol/L (3.5-5.1); SODIUM SERUM 138 mmol/L (136-145); UREA NITROGEN, BLOOD 47 mg/dL (7-18)
[2017-12-04] MEDS: SEVELAMER CARBONATE 800 MG TABLET PO SCH ×3 (08:17→18:12)
[2017-12-04] MEDS: PANTOPRAZOLE 40 MG TABLET.DR PO SCH (08:17)
--- NOTE | 2017-12-04 15:10 | NUR ---
VERIFIED WITH RAMON, HD STAFF, THAT PATIENT IS ON SCHEDULE TO RECEIVE HD TODAY
--- NOTE | 2017-12-04 17:41 | NUR ---
PATIENT POST DIALYSIS. NONLABORED BREATHING NOTED. DENYING PAIN AND DIZZINESS. 2 L OUTPUT. BP AT 98/54 WITH HR OF 88. BED ALARM ON. WILL CONTINUE TO MONITOR
[2017-12-04] MEDS: MAGNESIUM HYDROXIDE 30 ML UDC PO PRN (18:31)
--- NOTE | 2017-12-04 19:15 | NUR ---
RN NOTES: PATIENT RESTING IN BED. NONLABORED BREATHING NOTED ON ROOM AIR. AOX3, RUSSIAN SPEAKING. DENYING PAIN AT THE MOMENT. IV SITE ON RIGHT FOOT PATENT AND INTACT GAUGE 22. KAYLA AV FISTULA WITH NO BLEEDING NOTED. WOUND VAC WITH DRESSING ON SCALP INTACT WITH NO BLEEDING NOTED. DRESSING ON LEFT FOREARM INTACT WITH NO BLEEDING NOTED. BED IN LOWEST LOCKED POSITION. CALL LIGHT WITHIN REACH. ADMINISTERED MILK OF MAGNESIA PER ORDERS PATIENT WAS COMPLAINING OF CONSTIPATION ENDORSED TO NEXT SHIFT
--- NOTE | 2017-12-04 19:15 | NUR ---
RN NOTES: PATIENT RESTING IN BED. NONLABORED BREATHING NOTED ON ROOM AIR. AOX3, VIETNAMESE SPEAKING. DENYING PAIN AT THE MOMENT. IV SITE ON RIGHT FOOT PATENT AND INTACT GAUGE 22. KAYLA AV FISTULA WITH NO BLEEDING NOTED. WOUND VAC WITH DRESSING ON SCALP INTACT WITH NO BLEEDING NOTED. DRESSING ON LEFT FOREARM INTACT WITH NO BLEEDING NOTED. BED IN LOWEST LOCKED POSITION. CALL LIGHT WITHIN REACH. FALL PRECAUTIONS IMPLEMENTED THROUGHOUT SHIFT. ENDORSED TO TESFAYE PAZI FOR CONTINUATION OF CARE
--- NOTE | 2017-12-04 19:30 | NUR ---
MS RN OPENING NOTES RECEIVED PATIENT AWAKE IN BED WITH FAMILY @ BEDSIDE. IN NO ACUTE SIGNS OF DISTRESS. A/O X3. FRISIAN SPEAKING, DENIES PAIN OR ANY DISCOMFORTS @ THIS TIME. ON ROOM AIR, BREATHING EVEN AND UNLABORED. S/P RESECTION OF SCALP ( 12/03/2015), DRESSING DRY, CLEAN AND INTACT. WOUND VAC TO SCALP AT 125MMHG PRESSURE IN PLACE AND FUNCTIONING, DRAINING SEROSANGUINEOUS FLUID. HOB KEPT ELEVATED. RIGHT UPPER ARM FISTULA SECURED WITH DRESSING, LEFT ARM RESECTION MASS DRESSING INTACT. NO BLEEDING NOTED. IV ACCESS ON RIGHT FOOT G#22 INTACT AND PATENT, SL. BED IN LOW /LOCKED POSITION WITH SIDE RAILS UP X2. ALL SAFETY MEASURES MAINTAINED. WILL CONTINUE TO MONITOR PT.
[2017-12-04] MEDS: ATORVASTATIN 40 MG TABLET PO SCH (21:32)
--- NOTE | 2017-12-05 02:25 | NUR ---
PRN DULCOLAX SUPP GIVEN PT VERBALIZED C/O CONSTIPATION, MOM WAS GIVEN IN THE EVENING, PRN BUT WAS NOT EFFECTIVE & PT DIDN'T WANT TO TAKE MOM AGAIN SINCE IT WAS IN EFFECTIVE. PRN DULCOLAX SUPP GIVEN ORDERED. WILL MONITOR FOR EFFECTIVENESS.
--- NOTE | 2017-12-05 03:10 | NUR ---
PT HAD BM PT HAD GLASS OF WARM MILK, STATING THAT MILK HELPS HIM WITH CONSTIPATION & HAD X 1 LARGE SOFT BM. FELT RELAXED & WENT TO BED. WILL CONTINUE TO MONITOR.
--- NOTE | 2017-12-05 06:24 | NUR ---
MS RN CLOSING NOTES PATIENT SLEPT WELL @ NIGHT. IN NO ACUTE SIGNS OF DISTRESS. A/O X3. FRISIAN SPEAKING, DENIES PAIN OR ANY DISCOMFORTS @ THIS TIME. ON ROOM AIR, BREATHING EVEN AND UNLABORED. S/P RESECTION OF SCALP ( 12/03/2015), DRESSING DRY, CLEAN AND INTACT. WOUND VAC TO SCALP AT 125MMHG PRESSURE IN PLACE AND FUNCTIONING, DRAINING SEROSANGUINEOUS FLUID. WALKED IN THE HALLWAY @ NIGHT & TOLERATED TH ACTIVITY WELL. HOB KEPT ELEVATED. RIGHT UPPER ARM FISTULA SECURED WITH DRESSING, LEFT ARM RESECTION MASS DRESSING INTACT. NO BLEEDING NOTED. IV ACCESS ON RIGHT FOOT G#22 INTACT AND PATENT, SL. BED IN LOW /LOCKED POSITION WITH SIDE RAILS UP X2. ALL SAFETY MEASURES MAINTAINED. WILL ENDORSE TO AM RN FOR CONTINUITY OF CARE.
[2017-12-05 07:50] LABS: BASOPHILS % (AUTO) 0.3 % (0.0-2.0); EOSINOPHILS % (AUTO) 7.8 % (0.0-6.0); HEMATOCRIT 30 % (39-51); HEMOGLOBIN 9.8 g/dL (13.5-17.5); LYMPHOCYTES # (AUTO) 1.2 /CMM (0.8-4.8); LYMPHOCYTES % (AUTO) 23.4 % (20.0-44.0); MEAN CORPUSCULAR HGB CONC 33 g/dl (31.0-36.0); MEAN CORPUSCULAR VOLUME 101 fL (80-96); MONOCYTES # (AUTO) 0.4 /CMM (0.1-1.30); MONOCYTES % (AUTO) 6.7 % (2.0-12.0); NEUTROPHILS # (AUTO) 3.2 /CMM (1.8-8.9); NEUTROPHILS % (AUTO) 61.8 % (43.0-81.0); PLATELET COUNT (AUTO) 131 /CMM (150-450); RDW COEFFICIENT OF VARIATION 17.6 (11.5-15.0); RED BLOOD CELL COUNT(AUTO) 2.97 MIL/uL (4.5-6.0); WHITE BLOOD COUNT (AUTO) 5.3 K/uL (4.3-11.0)
[2017-12-05 08:00] VITALS: BP 130/61
[2017-12-05] MEDS: PANTOPRAZOLE 40 MG TABLET.DR PO SCH (08:02)
[2017-12-05] MEDS: SEVELAMER CARBONATE 800 MG TABLET PO SCH ×3 (08:03→17:17)
[2017-12-05 08:20] LABS: CALCIUM, SERUM 8.6 mg/dL (8.5-10.1); CARBON DIOXIDE 31 mmol/L (21-32); CHLORIDE 102 mmol/L (98-107); CREATININE 6.2 mg/dL (0.6-1.3); GLUCOSE 92 mg/dL (74-106); POTASSIUM 5.3 mmol/L (3.5-5.1); SODIUM SERUM 139 mmol/L (136-145); UREA NITROGEN, BLOOD 38 mg/dL (7-18)
--- NOTE | 2017-12-05 08:41 | NUR ---
RN NOTES: PATIENT RESTING IN BED. NONLABORED BREATHING NOTED ON ROOM AIR. AOX3, KINYARWANDA SPEAKING. DENYING PAIN AT THE MOMENT. IV SITE ON RIGHT FOOT PATENT AND INTACT GAUGE 22. KAYLA AV FISTULA WITH NO BLEEDING NOTED. WOUND VAC WITH DRESSING ON SCALP INTACT WITH NO BLEEDING NOTED. DRESSING ON LEFT FOREARM INTACT WITH NO BLEEDING NOTED. BED IN LOWEST LOCKED POSITION. CALL LIGHT WITHIN REACH. FALL PRECAUTIONS IMPLEMENTED THROUGHOUT SHIFT. ENDORSED TO BERNADINE PAIZ FOR CONTINUATION OF CARE
--- NOTE | 2017-12-05 08:46 | NUR ---
MS RN NOTE RECEIVED REPORT FROM CHENCHO GARCIA. WILL CONTINUE CONTINUITY OF CARE, PATIENT RESTING AT THIS TIME. WILL CONTINUE TO MONITOR.
[2017-12-05 15:53] VITALS: BP 102/61
--- NOTE | 2017-12-05 18:30 | NUR ---
MS RN CLOSING NOTE PATIENT IS RESTING COMFORTABLE AT THIS TIME IN BED LOCKED IN LOWEST POSITION. ALL DUE MEDICATIONS GIVEN ORDERED. ALL NURSING CARE NEEDS ATTENDED TO NEEDED. IV INTACT AND PATENT NO REDNESS NOTED. ABLE TO COMMUNICATE NEEDS. WOUND VAC INTACT RUNNING AT 125 MMHG. NO PAIN AT THIS TIME. NO SOB OR DISTRESS NOTED. WILL HEMODIALYSIS TOMORROW 11/26/17. LABS IN AM. WILL ENDORSE TO PRACTICAL MINISTRIES PROFESSOR NURSE FOR ELSIE
--- NOTE | 2017-12-05 19:25 | NUR ---
MS RN OPENING NOTES RECEIVED PATIENT AWAKE IN BED WITH FAMILY @ BEDSIDE. IN NO ACUTE DISTRESS. A/O X3. GERMAN SPEAKING, DENIES PAIN OR ANY DISCOMFORTS @ THIS TIME. ON ROOM AIR, BREATHING EVEN AND UNLABORED. S/P RESECTION OF SCALP ( 12/03/2015), DRESSING DRY, CLEAN AND INTACT. WOUND VAC TO SCALP AT 125MMHG PRESSURE IN PLACE AND FUNCTIONING, DRAINING SEROSANGUINEOUS FLUID. HOB KEPT ELEVATED. RIGHT UPPER ARM FISTULA SECURED WITH DRESSING, LEFT ARM RESECTION MASS DRESSING INTACT. NO BLEEDING NOTED. PER AM RN REPORT PT ATTEMPTED TO DISCONNECT THE WOUND VAC DRAINAGE TUBE WHEN NEEDS TO USE THE RESTROOM, EXPLAINED TO THE FAMILY & PT TO CALL THE NURSE TO TAKE CARE OF WOUND VAC IF HE NEEDS TO GO, FAMILY & PT VERBALIZED UNDERSTANDING @ THIS TIME. IV ACCESS ON RIGHT FOOT G#22 INTACT AND PATENT, SL. BED IN LOW /LOCKED POSITION WITH SIDE RAILS UP X2. ALL SAFETY MEASURES MAINTAINED. WILL CONTINUE TO MONITOR THE PT CLOSELY.
[2017-12-05 20:00] VITALS: BP 104/61
--- NOTE | 2017-12-05 21:20 | NUR ---
rn note; RECEIVED REPORT AND PT FROM CHENCHO HENDERSON, PT IN BED AWAKE AND ALERT. BREATHING EVENLY. NO SOB. NAD .SKIN WARM AND DRY, DRESSING W/ WOUND VAC IN PLACE ON THE SCALP DRAINING DARK RED FLUID. DRESSING ON LFA C/D/I. NO C/O PAIN OR DISCOMFORT. HOWEVER REQUESTING SNACKS AND SLEEPING PILL. WILL CALL ON- CALL FOR POSSIBLE ORDER .
[2017-12-05] MEDS: ATORVASTATIN 40 MG TABLET PO SCH (21:34)
--- NOTE | 2017-12-05 21:40 | NUR ---
CALLED VIDYA ORCHARD PRUNER SWEATER DESIGNER AND OBTAINED AN ORDER FOR PRN AMBIEN FOR INSOMNIA, AWAITING FOR PHARMACY TO VERIFY THE MED.
[2017-12-05] MEDS: ZOLPIDEM TARTRATE 5 MG TABLET PO PRN (22:29)
--- NOTE | 2017-12-05 22:31 | NUR ---
ASHLEY GIVEN ORDERED PERP T'S REQUEST FOR C/O INSOMNIA. WILL CONT TO MONITOR ,
--- NOTE | 2017-12-06 05:34 | NUR ---
MS RN CLOSING NOTES Patient in bed, resting, easily arousable. Wound vac on right side of the head in place with head/scalp dressing untouched as ordered. No excessive drainage/bleeding noted. Maintained safety measures. Stable during shift. No complaints of pain. All anticipated needs provided and met. Bed in lowest position with call light within reach. Will continue to monitor patient and endorse to oncoming shift nurse.
--- NOTE | 2017-12-06 07:15 | NUR ---
ms rn initial notes Received patient sitting on the chair, no complaint of pain or discomfort at this time. Wound vac in placed with 100ml output noted from plant operator/shift supervisor. KAYLA fistula. Alert and oriented x 3, kazakh speaking only. IV on the right foot patent and intact. On room air and tolerated well. Call light with in patient reach, will continue to monitor.
[2017-12-06 07:17] LABS: BASOPHILS % (AUTO) 0.7 % (0.0-2.0); EOSINOPHILS % (AUTO) 10.1 % (0.0-6.0); HEMATOCRIT 28 % (39-51); HEMOGLOBIN 9.4 g/dL (13.5-17.5); LYMPHOCYTES # (AUTO) 1.2 /CMM (0.8-4.8); LYMPHOCYTES % (AUTO) 23.3 % (20.0-44.0); MEAN CORPUSCULAR HGB CONC 33 g/dl (31.0-36.0); MEAN CORPUSCULAR VOLUME 100 fL (80-96); MONOCYTES # (AUTO) 0.4 /CMM (0.1-1.30); MONOCYTES % (AUTO) 6.7 % (2.0-12.0); NEUTROPHILS # (AUTO) 3.1 /CMM (1.8-8.9); NEUTROPHILS % (AUTO) 59.2 % (43.0-81.0); PLATELET COUNT (AUTO) 132 /CMM (150-450); RDW COEFFICIENT OF VARIATION 17.7 (11.5-15.0); RED BLOOD CELL COUNT(AUTO) 2.81 MIL/uL (4.5-6.0); WHITE BLOOD COUNT (AUTO) 5.3 K/uL (4.3-11.0)
[2017-12-06 07:37] LABS: CALCIUM, SERUM 8.1 mg/dL (8.5-10.1); CARBON DIOXIDE 27 mmol/L (21-32); CHLORIDE 98 mmol/L (98-107); GLUCOSE 99 mg/dL (74-106); MAGNESIUM 2.8 mg/dL (1.8-2.4); PHOSPHORUS 3.5 mg/dL (2.5-4.9); POTASSIUM 5.3 mmol/L (3.5-5.1); SODIUM SERUM 134 mmol/L (136-145); UREA NITROGEN, BLOOD 49 mg/dL (7-18)
[2017-12-06 07:40] LABS: CREATININE 8.4 mg/dL (0.6-1.3)
[2017-12-06 07:57] VITALS: BP 121/62
[2017-12-06 08:00] VITALS: BP 121/62
[2017-12-06] MEDS: PANTOPRAZOLE 40 MG TABLET.DR PO SCH (08:26)
[2017-12-06] MEDS: SEVELAMER CARBONATE 800 MG TABLET PO SCH ×3 (08:26→17:35)
[2017-12-06 08:39] LABS: IRON, SERUM 34 ug/dl (50-175); TOTAL IRON BINDING CAPACITY 217 ug/dl (250-450)
[2017-12-06] MEDS ORDERED: EPOETIN ALFA (10,000 UNIT) 10,000 UNIT/ML VIAL SQ ONE (10:00)
[2017-12-06 16:00] VITALS: BP 106/58
--- NOTE | 2017-12-06 19:19 | NUR ---
ms rn closing notes All needs provided, attended, and anticipated. patient is in stable condition. Endorsed to next shift RN to continue care. Call light with in patient reach.
--- NOTE | 2017-12-06 19:20 | NUR ---
MS RN OPENING NOTES RECEIVED PATIENT SLEEPING IN BED. IN NO ACUTE DISTRESS. A/O X 3. ZIMBABWEAN SPEAKING, ON ROOM AIR, BREATHING EVEN AND UNLABORED. NO S/S OF PAIN NOTED. S/P RESECTION OF SCALP ( 12/03/2015), DRESSING DRY, CLEAN AND INTACT. WOUND VAC TO SCALP AT 125MMHG PRESSURE IN PLACE AND FUNCTIONING, DRAINING SEROSANGUINEOUS FLUID. HOB KEPT ELEVATED. RIGHT UPPER ARM FISTULA SECURED WITH DRESSING, LEFT ARM RESECTION MASS DRESSING INTACT. NO BLEEDING NOTED. IV ACCESS ON RIGHT FOOT G#22 INTACT AND PATENT, SL. BED IN LOW /LOCKED POSITION WITH SIDE RAILS UP X 2. ALL SAFETY MEASURES MAINTAINED. WILL CONTINUE TO MONITOR THE PT CLOSELY.
[2017-12-06 20:00] VITALS: BP 107/75
[2017-12-06 20:06] VITALS: BP 107/61
[2017-12-06] MEDS: ATORVASTATIN 40 MG TABLET PO SCH (21:56)
[2017-12-06] MEDS: ZOLPIDEM TARTRATE 5 MG TABLET PO PRN (21:56)
--- NOTE | 2017-12-06 21:56 | NUR ---
PRN AMBIEN GIVEN PT REQUESTED TO GET SLEEPING MEDICINE DUE TO SLEEPLESSNESS. PRN AMBIEN GIVEN & WILL MONITOR FOR EFFECTIVENESS.
[2017-12-07 06:21] LABS: BASOPHILS % (AUTO) 0.4 % (0.0-2.0); EOSINOPHILS % (AUTO) 10.2 % (0.0-6.0); HEMATOCRIT 29 % (39-51); HEMOGLOBIN 9.5 g/dL (13.5-17.5); LYMPHOCYTES # (AUTO) 1.2 /CMM (0.8-4.8); LYMPHOCYTES % (AUTO) 23.6 % (20.0-44.0); MEAN CORPUSCULAR HGB CONC 33 g/dl (31.0-36.0); MEAN CORPUSCULAR VOLUME 100 fL (80-96); MONOCYTES # (AUTO) 0.4 /CMM (0.1-1.30); MONOCYTES % (AUTO) 8.6 % (2.0-12.0); NEUTROPHILS # (AUTO) 2.9 /CMM (1.8-8.9); NEUTROPHILS % (AUTO) 57.2 % (43.0-81.0); PLATELET COUNT (AUTO) 144 /CMM (150-450); RDW COEFFICIENT OF VARIATION 17.4 (11.5-15.0); RED BLOOD CELL COUNT(AUTO) 2.86 MIL/uL (4.5-6.0)
[2017-12-07 06:58] LABS: CALCIUM, SERUM 8.4 mg/dL (8.5-10.1); CARBON DIOXIDE 29 mmol/L (21-32); CHLORIDE 99 mmol/L (98-107); CREATININE 6.8 mg/dL (0.6-1.3); GLUCOSE 74 mg/dL (74-106); MAGNESIUM 2.6 mg/dL (1.8-2.4); PHOSPHORUS 4.3 mg/dL (2.5-4.9); POTASSIUM 4.6 mmol/L (3.5-5.1); SODIUM SERUM 136 mmol/L (136-145); UREA NITROGEN, BLOOD 36 mg/dL (7-18)
--- NOTE | 2017-12-07 07:07 | NUR ---
MS RN CLOSING NOTE PATIENT IS RESTING COMFORTABLE AT THIS TIME IN BED LOCKED IN LOWEST POSITION. ALL DUE MEDICATIONS GIVEN ORDERED. ALL NURSING CARE NEEDS ATTENDED TO NEEDED. IV INTACT AND PATENT TO RIGHT FOOT. NO REDNESS NOTED. ABLE TO COMMUNICATE NEEDS. WOUND VAC INTACT RUNNING AT 125 MMHG. NO PAIN AT THIS TIME. NO SOB OR DISTRESS NOTED. LABS IN AM. ENDORSED TO AM SHIFT NURSE FOR ELSIE
--- NOTE | 2017-12-07 07:15 | NUR ---
ms rn initial notes Received patient in bed, asleep, head of bed elevated, no SOB or distress noted, on room air and tolerated well. Wound vac intact and working fine, nothing change on the output from yesterday. Patient is alert and oriented x 3, cypriot speaking only. IV intact and patent on the right foot, and KAYLA fistula with dressing intact. No facial grimace noted. Call light with in patient reach, will continue to monitor accordingly.
[2017-12-07 08:00] VITALS: BP 108/61
[2017-12-07] MEDS: SEVELAMER CARBONATE 800 MG TABLET PO SCH (08:27)
[2017-12-07] MEDS: PANTOPRAZOLE 40 MG TABLET.DR PO SCH (08:27)
[2017-12-07] MEDS ORDERED: ALLA266C2 TP (10:07)
--- NOTE | 2017-12-07 12:00 | NUR ---
ms newborn photographer notes Discharge instructions given to daughter in law Haydee and able to understand instructions. Wound vac in [facility] teaching and demonstration given to daughter in law and patient and able to follow instructions. Signed discharge instructions and belonging list and no items missing. IV discontinued and pressured applied to prevent bleeding. Informed patient to follow up with primary health care physician in 1-2 weeks. Follow up with wound MD on and made aware for wound vac and dressing change. Case manage informed about patient new address for home health. Patient is alert and oriented x 3, verbally responsive and able to make needs known. Portable wound vac changed and old vac returned to the dirty utility room. Vital signs checked and recorded. Patient left via wheelchair accompanied by daughter and daughter in law in stable condition. No complaint of pain or discomfort noted, nor chest pain. No apparent distress noted. MD and charge nurse made aware. Pictures taken and filed in the chart. Pneumonia and flu vaccine already received 2018 according to patient.
== END 2017-12-07 12:00 | disposition home health service (06) | DRG 576 ==
LOC: DS 05:53 → MED 05:57 → TELE 12:35 → MED 12-03 08:30
PROVIDERS: ADMIT Surgery; ATTEND Internal Medicine Nephrology
PROC: 0JB00ZZ Excision of Scalp Subcutaneous Tissue and Fascia, Open Approach (ICD-10-PCS; 2017-12-02)
PROC: 0JBF0ZZ Excision of Left Upper Arm Subcutaneous Tissue and Fascia, Open Approach (ICD-10-PCS; 2017-12-02)
PROC: 0HB0XZX Excision of Scalp Skin, External Approach, Diagnostic (ICD-10-PCS; 2017-12-02)
PROC: 5A1D70Z Performance of Urinary Filtration, Intermittent, Less than 6 Hours Per Day (ICD-10-PCS; 2017-12-02)
PROC: 5A1D70Z Performance of Urinary Filtration, Intermittent, Less than 6 Hours Per Day (ICD-10-PCS; 2017-12-02)
PROC: 5A1D70Z Performance of Urinary Filtration, Intermittent, Less than 6 Hours Per Day (ICD-10-PCS; 2017-12-02)
PROC: 0JX00ZC Transfer Scalp Subcutaneous Tissue and Fascia with Skin, Subcutaneous Tissue and Fascia, Open Approach (ICD-10-PCS; principal; 2017-12-02 08:29)
DX: C44.42 Squamous cell carcinoma of skin of scalp and neck (principal); N18.6 End stage renal disease; E44.0 Moderate protein-calorie malnutrition; I12.0 Hypertensive chronic kidney disease with stage 5 chronic kidney disease or end stage renal disease; I42.9 Cardiomyopathy, unspecified; I48.92 Unspecified atrial flutter; Z99.2 Dependence on renal dialysis; D64.9 Anemia, unspecified; E66.01 Morbid (severe) obesity due to excess calories; E78.5 Hyperlipidemia, unspecified; E83.41 Hypermagnesemia; E87.5 Hyperkalemia; I48.91 Unspecified atrial fibrillation; K59.00 Constipation, unspecified; Z86.11 Personal history of tuberculosis; Z87.891 Personal history of nicotine dependence; E88.09 Other disorders of plasma-protein metabolism, not elsewhere classified; Z68.31 Body mass index [BMI] 31.0-31.9, adult; I45.10 Unspecified right bundle-branch block; C44.629 Squamous cell carcinoma of skin of left upper limb, including shoulder
CPT/HCPCS: 36415; 36600; 80048-TC; 80061-TC; 82803-TC; 83540-TC; 83735-TC; 84100-TC; 84443-TC; 85025-TC; 87081-TC; 88305-TC; 88331-TC; 90935-TC; A6253; A6402; J0690; J0885; J1100; J3490; Z7610

== ENCOUNTER 2017-12-09 12:45 | Outpatient (CLI) | payer MEDICARE, OTHER ==
[~2017-12-09 12:45] MED LIST changes: +ALLA266C2 TP; -RXVAN XX
== END 2017-12-09 23:59 | disposition home health service (06) ==
LOC: WOU 12:45
PROVIDERS: ATTEND Surgery
DX: Z48.3 Aftercare following surgery for neoplasm (principal); Z48.817 Encounter for surgical aftercare following surgery on the skin and subcutaneous tissue; C44.42 Squamous cell carcinoma of skin of scalp and neck; T81.4XXD Infection following a procedure, subsequent encounter; L02.213 Cutaneous abscess of chest wall; T82.7XXD Infection and inflammatory reaction due to other cardiac and vascular devices, implants and grafts, subsequent encounter; Y71.8 Miscellaneous cardiovascular devices associated with adverse incidents, not elsewhere classified; T81.89XA Other complications of procedures, not elsewhere classified, initial encounter
CPT/HCPCS: 11043; 11046; 97605; A6402 ×2; Z7610

== ENCOUNTER 2017-12-10 19:29 | Emergency (ER) | payer MEDICARE, OTHER ==
[~2017-12-10] VITALS: Ht 165.1 cm; Wt 73.9 kg
[2017-12-10 19:59] VITALS: BP 111/61
== END 2017-12-10 21:21 | disposition home or self-care (01) ==
LOC: ER 19:31
DX: Z48.1 Encounter for planned postprocedural wound closure (principal); I12.0 Hypertensive chronic kidney disease with stage 5 chronic kidney disease or end stage renal disease; N18.6 End stage renal disease; Z99.2 Dependence on renal dialysis; Z79.82 Long term (current) use of aspirin; Z98.890 Other specified postprocedural states; Z85.828 Personal history of other malignant neoplasm of skin
CPT/HCPCS: 99281; A4606; Z7502; Z7610

== ENCOUNTER 2017-12-16 12:55 | Outpatient (CLI) | payer MEDICARE, OTHER | END 2017-12-16 23:59 | disposition home health service (06) | LOC: WOU 12:55 | PROVIDERS: ATTEND Surgery | DX: Z48.3 Aftercare following surgery for neoplasm (principal); C44.42 Squamous cell carcinoma of skin of scalp and neck; T82.7XXD Infection and inflammatory reaction due to other cardiac and vascular devices, implants and grafts, subsequent encounter; L02.213 Cutaneous abscess of chest wall; R21 Rash and other nonspecific skin eruption; R22.0 Localized swelling, mass and lump, head; T81.89XA Other complications of procedures, not elsewhere classified, initial encounter | CPT/HCPCS: 11043; 11100; 88305-TC; 97605-TC; A6402; J3490; Z7610 ==

== ENCOUNTER 2017-12-25 09:35 | Emergency (ER) | payer MEDICARE, OTHER ==
[~2017-12-25] VITALS: Ht 162.6 cm; Wt 73.9 kg
[2017-12-25 09:35] VITALS: BP 125/72
--- NOTE | 2017-12-25 09:45 | NUR ---
PT NOTED WITH DRY AND INTACT DRESSING TO RIGHT SIDE OF HEAD FOR WOUND VAC. NOTED DISCONNECTED TO WOUND VAC, PER FAMILY MACHINE STOPPED WORKING SINCE YESTERDAY AND WAS UNDER A HOME HEALTH FOR WOUND CARE BUT NO RECENT VISIT FROM ANY NURSE. MD AT BS. FAMILY MEMBERS AT BS. VSS. NAD NOTED. TRIED CHECKING WOUND VAC MACHINE, PLUGGED IT AND IT DID NOT TURN ON. WILL MONITOR.
--- NOTE | 2017-12-25 10:17 | NUR ---
CALLED [facility] AND SPOKE TO CORONA CHACON THAT PT WAS UNDER THEIR CARE FOR WOUND CARE BUT WAS PLACED ON HOSPITAL HOLD DUE TO RECENT ADMISSION FOR HYPOTENSION AT [facility] LAST December. ACCORDING TO [facility], THEY NEVER RECEIVED FF UP ORDERS FROM [facility] NOR ANY CALL FROM FAMILY MEMBERS TO RESUME CARE. AWAITING FOR CALL BACK FROM . WAS ADVISED TO CALL DR. DELEON SINCE PT IS UNDER HIS CARE FOR WOUND ORDERS.
--- NOTE | 2017-12-25 10:35 | NUR ---
CALLED [employer] TO HELP US WITH THE PNEUMATIC DEICER INSPECTOR REGARDING HOME HEALTH AND NEW WOUND VAC MACHINE.
--- NOTE | 2017-12-25 10:57 | NUR ---
ROYA EWING, COLLAR SHAPER OPERATOR CALLED AND WILL FOLLOW UP WITH [facility].
== END 2017-12-25 11:42 | disposition home or self-care (01) ==
LOC: ER 09:39
DX: Z48.00 Encounter for change or removal of nonsurgical wound dressing (principal); I12.0 Hypertensive chronic kidney disease with stage 5 chronic kidney disease or end stage renal disease; N18.6 End stage renal disease; Z99.2 Dependence on renal dialysis; Z79.82 Long term (current) use of aspirin; Z85.828 Personal history of other malignant neoplasm of skin
CPT/HCPCS: 99281; A4606; Z7502; Z7610

== ENCOUNTER 2017-12-27 13:06 | Outpatient (CLI) | payer MEDICARE, OTHER | END 2017-12-27 23:59 | disposition home health service (06) | LOC: WOU 13:06 | PROVIDERS: ATTEND Surgery | DX: Z48.817 Encounter for surgical aftercare following surgery on the skin and subcutaneous tissue (principal); T81.89XA Other complications of procedures, not elsewhere classified, initial encounter; C44.42 Squamous cell carcinoma of skin of scalp and neck; R22.0 Localized swelling, mass and lump, head | CPT/HCPCS: 11042; 11043; 97605-TC; A6402; Z7610 ==

== ENCOUNTER 2017-12-30 11:10 | Inpatient (IN) | payer MEDICARE, OTHER ==
[~2017-12-30] VITALS: Ht 165.1 cm; Wt 77.6 kg
[2017-12-30 11:10] VITALS: BP 124/49
--- NOTE | 2017-12-30 12:09 | NUR ---
MS RN ADMITTING NOTES RECEIVED PT FROM ADMITTING NURSE IN STABLE CONDITION. PT WILL BE ADMITTED FOR A RESECTION OF HIS SCALP TO BE DONE TODAY AT 2PM BY DR. DELEON. CONSENTS OBTAINED FROM PT. SURGICAL CHECKLIST COMPLETED. BELONGINGS VERIFIED WITH PT AND FAMILY. PT IS A/O X3. NO SOB OR SIGNS OF INFILTRATION NOTED. BREATHING IS EVEN AND UNLABORED. VITALS STABLE. PREOP ORDERS NOTED FROM DR. DELEON TO OBTAIN CBC, BMP, PT/PTT/INR. WILL INPUT ORDERS. AV FISTULA TO RIGHT UPPER ARM NOTED. BRUIT AND THRILL PRESENT. PT STATES THAT HE RECEIVED HIS DIALYSIS TODAY. NORMAL H/D DAYS INCLUDE T, TH, AND SAT WITH US RENAL. PT PRESENTS WITH A SCALP WOUND VAC OBTAINED FROM A PRIOR OR PROCEDURE. DRESSING NOTED TO BE CLEAN DRY, AND INTACT. WOUND PHOTOS TAKEN AND PLACED IN PT'S CHART. IV INSERTED TO LEFT HAND 22G. IV PATENT AND INTACT. NO REDNESS OR SIGNS OF INFILTRATION NOTED. PT ORIENTED TO ROOM AND USE OF CALL LIGHT. BED IN LOW LOCKED POSITION, SIDE RAILS UP X2, CALL LIGHT WITHIN REACH, FAMILY AT BEDSIDE. WILL CONTINUE TO MONITOR
[2017-12-30] MEDS ORDERED: DOCU-141 PO (13:52)
[2017-12-30] MEDS ORDERED: APIX2.5T PO (13:52)
[2017-12-30] MEDS ORDERED: FOLI0.8T23 PO (13:52)
[2017-12-30] MEDS ORDERED: FOLI1TAB16 PO (13:52)
[2017-12-30] MEDS ORDERED: FERR325T23 PO (13:52)
[2017-12-30 14:09] LABS: BASOPHILS % (AUTO) 0.8 % (0.0-2.0); EOSINOPHILS % (AUTO) 6.9 % (0.0-6.0); HEMATOCRIT 32 % (39-51); HEMOGLOBIN 10.6 g/dL (13.5-17.5); LYMPHOCYTES # (AUTO) 1.3 /CMM (0.8-4.8); LYMPHOCYTES % (AUTO) 23.9 % (20.0-44.0); MEAN CORPUSCULAR HEMOGLOBIN 33 PG (26.0-33.0); MEAN CORPUSCULAR HGB CONC 34 g/dl (31.0-36.0); MEAN CORPUSCULAR VOLUME 97 fL (80-96); MONOCYTES # (AUTO) 0.5 /CMM (0.1-1.30); NEUTROPHILS # (AUTO) 3.2 /CMM (1.8-8.9); NEUTROPHILS % (AUTO) 59.4 % (43.0-81.0); PLATELET COUNT (AUTO) 175 /CMM (150-450); RDW COEFFICIENT OF VARIATION 16.3 (11.5-15.0); RED BLOOD CELL COUNT(AUTO) 3.25 MIL/uL (4.5-6.0); WHITE BLOOD COUNT (AUTO) 5.4 K/uL (4.3-11.0)
--- NOTE | 2017-12-30 14:15 | NUR ---
PT TAKEN DOWN RO OR PROCEDURE IN STABLE CONDITION. CHESTER JONES MADE AWARE THE PT'S LAB WORK IS STILL PENDING AND STATED THAT HE WILL NOTIFY THE ANESTHESIOLOGIST
[2017-12-30 14:18] LABS: CALCIUM, SERUM 9.3 mg/dL (8.5-10.1); CARBON DIOXIDE 28 mmol/L (21-32); CHLORIDE 97 mmol/L (98-107); CREATININE 5.9 mg/dL (0.6-1.3); GLUCOSE 90 mg/dL (74-106); POTASSIUM 4.1 mmol/L (3.5-5.1); SODIUM SERUM 134 mmol/L (136-145); UREA NITROGEN, BLOOD 36 mg/dL (7-18)
[2017-12-30 14:19] LABS: INR 1.1 (0.87-1.13)
[2017-12-30] MEDS ORDERED: BUPIVACAINE 0.5 % PF 150 MG/30 ML VIAL ONE (14:52)
[2017-12-30] MEDS ORDERED: LIDOCAINE 0.5%-EPI 1:200,000 50 ML VIAL ONE (14:52)
[2017-12-30] MEDS ORDERED: ANESTHESIA TRAY IN PYXIS 1 EA TRAY MC ONE (14:53)
[2017-12-30] MEDS ORDERED: SEVOFLURANE 250 ML BOTTLE IH ONE (14:54)
--- NOTE | 2017-12-30 16:01 | NUR ---
OR CANCELLATION: OR NURSE CALLED TO REPORT THAT PT'S PROCEDURE WAS CANCELLED DUE TO AN INCREASE IN HIS HR ONCE GENERAL ANESTHESIA WAS ADMINISTERED. PER OR NURSE "PT'S HR WENT INTO THE HIGH 150s HOWEVER IS NOW IN THE 90s, DR. DELEON WILL LIKE HIM TO BE ADMITTED UNDER TELE". PT'S HOME WOUND VAC WAS ALSO REPLACED WITH ONE FROM THE HOSPITAL. CHARGE NURSE MADE AWARE. DR. MOSS CALLED FOR ADMISSION ORDERS
--- NOTE | 2017-12-30 16:36 | NUR ---
FLOOR INSTALLATION MECHANIC NOTES PT BACK FROM OR PROCEDURE IN STABLE CONDITION. HE DENIES ANY PAIN OR DISCOMFORT AT THIS TIME. TELE LEADS PLACE. PT IS AFIB ON THE TELE MONITOR WITH A CURRENT HR OF 105. STILL AWAITING CALL BACK FROM DR. ELKINS. WILL CONTINUE TO MONITOR
--- NOTE | 2017-12-30 16:42 | NUR ---
MRSA SAMPLE COLLECTED. SWITCHBOARD WIRE WORKER HELPER NOTIFIED
[2017-12-30 17:00] VITALS: BP 114/51
--- NOTE | 2017-12-30 18:17 | NUR ---
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 PER MD "RESUME AL HOME MEDS, OBTAIN CBC AND BMP FOR THE MORNING, AND CONTINUE TO MONITOR". MED RECON LIST SUCCESSFULLY FAXED TO PHARMACY AND LAB ORDERS PLACED
--- NOTE | 2017-12-30 18:30 | NUR ---
PACKING ROOM WORKER CLOSING NOTES PT REMAINS STABLE. ALL NEEDS MET DURING SHIFT AND ORDERS CARRIED OUT ACCORDINGLY. WOUND VAC REMAINS INTACT WITH NO DRAINAGE AT THIS TIME. IV REMAINS PATENT AND INTACT. PT REMAINS AFIB ON THE MONITOR AND ASYMPTOMATIC. SAFETY MEASURES REMAIN IN PLACE. WILL ENDORSE TO NIGHTSHIFT NURSE FOR ELSIE
--- NOTE | 2017-12-30 19:17 | NUR ---
CHAIR INSPECTOR OPENING NOTE RECEIVE PATIENT AWAKE IN BED, A/O X3, STABLE, NO FACIAL GRIMACING NOTED FOR PAIN. NO SOB OR DISTRESS NOTED, CALL LIGHT WITHIN REACH. SAFETY MEASURES IMPLEMENTED. WILL CONTINUE TO MONITOR THROUGHOUT SHIFT.
[2017-12-30 20:00] VITALS: BP 117/52
[2017-12-30] MEDS: ATORVASTATIN 40 MG TABLET PO SCH (21:11)
[2017-12-31] VITALS: BP 93/41
[2017-12-31 04:00] VITALS: BP 107/53
--- NOTE | 2017-12-31 06:06 | NUR ---
MS RN NOTES WOUND VAC LEAK NOTED ORDER DRESSING KIT TO CENTRAL SUPPLY AWAITING KIT. PT NO S/S OF BLEEDING. WILL CHANGE DRESSING.
--- NOTE | 2017-12-31 06:09 | NUR ---
MS RN CLOSING NOTES PT COMFORTABLY ASLEEP AND EASILY AWAKEN, A/O X 3, RESPIRATION EVEN AND UNLABORED. KEPT CLEAN AND DRY AND COMFORTABLE, ALL NURSING CARE RENDERED. NEEDS ATTENDED AND ANTICIPATED, GOOD SKIN CARE PROVIDED. ON LOW BED AT ALL TIMES TO ENSURE SAFETY. SAFE HAZARD FREE ENVIRONMENT PROVIDED. NO COMPLAINS OF PAIN. CALL LIGHT WITHIN EASY TO REACH. WILL ENDORSE NEXT SHIFT CONTINUITY OF CARE. Addendum: 12/31/17 at 0610 by CHARISSA ROBLERO RN ON TELE MONITOR WITH READING OF AFIB 101 CONTROLLED AWARE
--- NOTE | 2017-12-31 07:20 | NUR ---
RN NOTES PATIENT RECEIVED AWAKE ALERT AND VERBALLY RESPONSIVE, ABLE TO MAKE NEEDS KNOWN, RESPIRATIONS EVEN AND UNLABORED, ABLE TO MAKE NEEDS KNOWN, DENIES ANY PAIN OR DISCOMFORT AT THIS TIME. PATIENT WITH IV ACCESS TO LEFT HAND PATENT AND INTACT NO REDNESS OR INFILTRATION NOTED. WOUND VAC DRESSING REINFORCED, TO BE CHANGED THIS SHIFT. SAFETY MEASURES IN PLACE, REMINDED PATIENT TO CALL WHEN ASSISTANCE IS NEEDED AND NOT DISCONNECT IT ON HIS OWN. CALL LIGHT WITH REACH WILL CONTINUE TO MONITOR
[2017-12-31 08:00] VITALS: BP 99/67
[2017-12-31] MEDS: FOLIC ACID 1 MG TABLET PO SCH (08:20)
[2017-12-31] MEDS: APIXABAN 2.5 MG TABLET PO SCH ×3 (08:20→17:42)
[2017-12-31] MEDS: DOCUSATE SODIUM 100 MG CAPSULE PO SCH (08:23)
[2017-12-31] MEDS: VIT B CMPLX 3/FA/VIT C/BIOTIN 1 TAB TABLET PO SCH (08:23)
[2017-12-31] MEDS: FERROUS SULFATE (325 MG) 325 MG/TAB TABLET PO SCH (08:24)
[2017-12-31] MEDS: PANTOPRAZOLE 40 MG TABLET.DR PO SCH (08:24)
[2017-12-31] MEDS: SEVELAMER CARBONATE 800 MG TABLET PO SCH ×3 (08:24→17:42)
[2017-12-31] MEDS: METOPROLOL TARTRATE 25 MG TABLET PO SCH (08:32)
--- NOTE | 2017-12-31 10:30 | NUR ---
RN NOTES/WOUND VAC WOUND VAC DRESSING CHANGED BY KATHY METZ WILL CONTINUE TO MONITOR, PICTURE TAKEN PLACED IN CHART
[2017-12-31 16:00] VITALS: BP 115/62
--- NOTE | 2017-12-31 16:55 | NUR ---
Patient speaks Upper Sorbian only. He is ambulatory and is independent with his ADLs. He lives in an apartment with his brother, Brendon. Pt goes to [facility] ([phone]) for dialysis TTHS at 15:30. He is currently on service with [facility] [phone]. No DME reported. Current plan is to DC back home once medically cleared. Addendum: 12/31/17 at 1655 by JUVENAL STAPLES RN Amended: Links added.
[2017-12-31 18:22] LABS: BASOPHILS % (AUTO) 0.3 % (0.0-2.0); EOSINOPHILS % (AUTO) 6.3 % (0.0-6.0); HEMATOCRIT 32 % (39-51); HEMOGLOBIN 10.7 g/dL (13.5-17.5); LYMPHOCYTES # (AUTO) 1.4 /CMM (0.8-4.8); LYMPHOCYTES % (AUTO) 22.3 % (20.0-44.0); MEAN CORPUSCULAR HEMOGLOBIN 33 PG (26.0-33.0); MEAN CORPUSCULAR HGB CONC 34 g/dl (31.0-36.0); MEAN CORPUSCULAR VOLUME 98 fL (80-96); MONOCYTES # (AUTO) 0.6 /CMM (0.1-1.30); MONOCYTES % (AUTO) 10.1 % (2.0-12.0); PLATELET COUNT (AUTO) 175 /CMM (150-450); RDW COEFFICIENT OF VARIATION 16.7 (11.5-15.0); RED BLOOD CELL COUNT(AUTO) 3.22 MIL/uL (4.5-6.0); WHITE BLOOD COUNT (AUTO) 6.4 K/uL (4.3-11.0)
[2017-12-31 18:40] LABS: CALCIUM, SERUM 9.1 mg/dL (8.5-10.1); CARBON DIOXIDE 26 mmol/L (21-32); CHLORIDE 94 mmol/L (98-107); GLUCOSE 107 mg/dL (74-106); POTASSIUM 4.8 mmol/L (3.5-5.1); SODIUM SERUM 132 mmol/L (136-145); UREA NITROGEN, BLOOD 64 mg/dL (7-18)
[2017-12-31 18:47] LABS: CREATININE 8.3 mg/dL (0.6-1.3)
--- NOTE | 2017-12-31 19:30 | NUR ---
MS/RN NOTES RECEIVE ENDORSEMENT FROM AM RN , LATEST LAB RECEIVED WITH ELEVATED CREA AT 8.3 AND BUN AT 64H, PATIENT RECEIVING DIALYSIS, CHARGE NURSE AWARE ,FAMILY REPORTED DIALYSIS DONE YESTERDAY AND FOR MISBAH. PATIENT ALERT, ORIENTED, WILL MONITOR FOR ANY S/S OF DISCOMFORT AND ANY CHANGES.
--- NOTE | 2017-12-31 19:45 | NUR ---
RN CLOSING NOTES PATIENT AWAKE ALERT AND VERBALLY RESPONSIVE, ABLE TO MAKE NEEDS KNOWN, RESPIRATIONS EVEN AND UNLABORED, ABLE TO MAKE NEEDS KNOWN, DENIES ANY PAIN OR DISCOMFORT AT THIS TIME. PATIENT WITH IV ACCESS TO LEFT HAND PATENT AND INTACT NO REDNESS OR INFILTRATION NOTED. WOUND VAC DRESSING REINFORCED, TO BE CHANGED THIS SHIFT. SAFETY MEASURES IN PLACE, REMINDED PATIENT TO CALL WHEN ASSISTANCE IS NEEDED AND NOT DISCONNECT IT ON HIS OWN. CALL LIGHT WITH REACH WILL CONTINUE TO MONITOR
[2017-12-31 20:00] VITALS: BP 109/52
--- NOTE | 2017-12-31 20:00 | NUR ---
MS/RN OPENING NOTES PATIENT IN BED, AWAKE, ALERT X3, ABLE TO OPEN EYES AND FOLLOW COMMANDS CAN UNDERSTAND LITTLE CUBAN, FAMILY INVOLVE AND ABLE TO DISCUSS PLAN OF CARE WITH THEM, RESPIRATIONS EVEN AND UNLABORED. SKIN WARM TO TOUCH, ON HEMODIALYSIS, SCHEDULED TOMORROW. MONITORING FOR I/0. REPORTED NO BM TODAY , WITH SCANTY URINE, WOUND VAC ON HEAD DUE TO WOUND RUNNING AT 125MMHHG. INTACT. WILL MONITOR.
[2017-12-31] MEDS: ATORVASTATIN 40 MG TABLET PO SCH (20:53)
--- NOTE | 2017-12-31 21:00 | NUR ---
MS/RN NOTES REFAL TO HAVE DVT PUMP ON.
--- NOTE | 2018-01-01 00:52 | NUR ---
MS/RN NOTES MD. JC WAS INFORMED REGARDING LAB RESULT OF PATIEN WITH ELEVATED CREATININE OF 8.3 AND BUN LEVEL OF 6.4H, , THAT PATIENT ON HD, NO NEW ORDER, MONITORING AND F/U IN AM.
[2018-01-01 06:09] LABS: CALCIUM, SERUM 9.2 mg/dL (8.5-10.1); CARBON DIOXIDE 24 mmol/L (21-32); CHLORIDE 97 mmol/L (98-107); GLUCOSE 99 mg/dL (74-106); POTASSIUM 4.5 mmol/L (3.5-5.1); SODIUM SERUM 135 mmol/L (136-145); UREA NITROGEN, BLOOD 69 mg/dL (7-18)
[2018-01-01 06:13] LABS: CREATININE 9.2 mg/dL (0.6-1.3)
--- NOTE | 2018-01-01 06:23 | NUR ---
307-1 MS/RN NOTES PATIENT IN BED, ABLE TO SLEEP DURING THE NIGHT, ASSIST WITH NEEDS, MONITORING FOR SAFETY, WOUND VAC ON SCALP RUNNING, SKIN WARM TO TOUCH. WILL MONITOR AND ENDORSE TO AM RN FOR ELSIE.
[2018-01-01 06:26] LABS: BASOPHILS % (AUTO) 0.4 % (0.0-2.0); EOSINOPHILS % (AUTO) 7.7 % (0.0-6.0); HEMATOCRIT 29 % (39-51); LYMPHOCYTES # (AUTO) 1.6 /CMM (0.8-4.8); LYMPHOCYTES % (AUTO) 29.8 % (20.0-44.0); MEAN CORPUSCULAR HEMOGLOBIN 34 PG (26.0-33.0); MEAN CORPUSCULAR HGB CONC 35 g/dl (31.0-36.0); MEAN CORPUSCULAR VOLUME 97 fL (80-96); MONOCYTES # (AUTO) 0.5 /CMM (0.1-1.30); MONOCYTES % (AUTO) 9.1 % (2.0-12.0); NEUTROPHILS # (AUTO) 2.8 /CMM (1.8-8.9); PLATELET COUNT (AUTO) 178 /CMM (150-450); RED BLOOD CELL COUNT(AUTO) 2.97 MIL/uL (4.5-6.0); WHITE BLOOD COUNT (AUTO) 5.3 K/uL (4.3-11.0)
--- NOTE | 2018-01-01 07:30 | NUR ---
RN NOTES PATIENT RECEIVED AWAKE ALERT AND VERBALLY RESPONSIVE, ABLE TO MAKE NEEDS KNOWN, RESPIRATIONS EVEN AND UNLABORED, ABLE TO MAKE NEEDS KNOWN, DENIES ANY PAIN OR DISCOMFORT AT THIS TIME. PATIENT WITH IV ACCESS TO LEFT HAND PATENT AND INTACT NO REDNESS OR INFILTRATION NOTED. WOUND VAC DRESSING IN PLACE. SAFETY MEASURES IN PLACE, REMINDED PATIENT TO CALL WHEN ASSISTANCE IS NEEDED AND NOT DISCONNECT IT ON HIS OWN. CALL LIGHT WITH REACH WILL CONTINUE TO MONITOR
[2018-01-01 08:00] VITALS: BP 108/61
[2018-01-01] MEDS: SEVELAMER CARBONATE 800 MG TABLET PO SCH ×3 (08:20→17:14)
[2018-01-01] MEDS: METOPROLOL TARTRATE 25 MG TABLET PO SCH (08:20)
[2018-01-01] MEDS: FERROUS SULFATE (325 MG) 325 MG/TAB TABLET PO SCH (08:20)
[2018-01-01] MEDS: PANTOPRAZOLE 40 MG TABLET.DR PO SCH (08:20)
[2018-01-01] MEDS: VIT B CMPLX 3/FA/VIT C/BIOTIN 1 TAB TABLET PO SCH (08:20)
[2018-01-01] MEDS: FOLIC ACID 1 MG TABLET PO SCH (08:20)
[2018-01-01] MEDS: DOCUSATE SODIUM 100 MG CAPSULE PO SCH (08:20)
[2018-01-01] MEDS: APIXABAN 2.5 MG TABLET PO SCH (09:00)
[2018-01-01] MEDS ORDERED: ALBUMIN 25% 25 GM in PREMIX 1 EA IV PRN (10:30)
[2018-01-01 16:00] VITALS: BP 109/66
--- NOTE | 2018-01-01 19:24 | NUR ---
RN NOTES PATIENT RECEIVED AWAKE ALERT AND VERBALLY RESPONSIVE, ABLE TO MAKE NEEDS KNOWN, RESPIRATIONS EVEN AND UNLABORED, ABLE TO MAKE NEEDS KNOWN, DENIES ANY PAIN OR DISCOMFORT AT THIS TIME. PATIENT WITH IV ACCESS TO LEFT HAND PATENT AND INTACT NO REDNESS OR INFILTRATION NOTED. WOUND VAC DRESSING IN PLACE. SAFETY MEASURES IN PLACE, REMINDED PATIENT TO CALL WHEN ASSISTANCE IS NEEDED AND NOT DISCONNECT IT ON HIS OWN. CALL LIGHT WITH REACH WILL CONTINUE TO MONITOR, ENDORSED TO NEXT SHIFT FOR CONTINUITY OF CARE
--- NOTE | 2018-01-01 19:30 | NUR ---
RN INITIAL NOTES: RECEIVED REPORT FROM MARTHA PAIZ. PT IN BED, AWAKE, A/O X3 LATVIAN SPEAKING,FAMILY AT BED SIDE, PT DENIES ANY PAIN OR DISCOMFORT AT THIS TIME. IV ACCESS NOTED TO BE LEAKING, WILL INSERT A NEW ONE. PT CLAIMING HIS HARD TO STICK. PT S/P HD TODAY BUT ONLY CLEANING, NO OUTPUT REMOVED. ALSO PER DAY RN MARTHA, ALBUMIN WASNT GIVEN DURING HD BP SUPPORT, SHE KEPT CALLING PHARMACY BEFORE START OF HD. HOWEVER HD WAS DONE/COMPLETED AND NO ALBUMIN WAS DELIVERED, SO PER HD RN, ONLY CLEANING AND NO OUTPUT REMOVED. PT HAS WOUND VAC IN PLACED, DRESSING C/D/I, PT REFUSING BURN NETTING. AWARE. DISCUSSED PLAN OF CARE. SAFETY PRECAUTIONS FOR FALL INITIATED, CALL LIGHT IN REACH, WILL CONTINUE MONITORING PT.
[2018-01-01 20:00] VITALS: BP 101/43
--- NOTE | 2018-01-01 20:30 | NUR ---
RN NOTES: TRIED REINSERTING IV AT THIS TIME, UNSUCCESSFUL, ALTHOUGH ACCU VEIN WAS USED
--- NOTE | 2018-01-01 20:45 | NUR ---
RN NOTES: CONTACTED ICU TO RESTART AN IV, HOWEVER UNSUCCESSFUL. PT INSISTING HE WOULD LIKE TO HAVE SPECIAL IV/MIDLINE, AND DOESNT WANT TO BE POKED AGAIN. HE STATED HE'S BEEN POKED SO MANY TIMES FOR IV REINSERTION FOR THE PAST COUPLE OF DAYS
--- NOTE | 2018-01-01 21:00 | NUR ---
RN NOTES: PT REFUSED TO HAVE HIS IV REINSERTED AT THIS TIME, HE STATED HE WANTS IT IN AM. EDUCATION PROVIDED TO THE PT, BRIANNA TRANSLATED IN BELARUSIAN
--- NOTE | 2018-01-01 21:30 | NUR ---
RN NOTES: UNABLE TO ADMINISTER ALBUMIN DUE TO PT NOT HAVING IV ACCESS, MADE AWARE, PT REFUSING IV DESPITE GIVING EDUCATION, PRIMARY GRADE TEACHER AWARE
[2018-01-01] MEDS: ATORVASTATIN 40 MG TABLET PO SCH (21:44)
[2018-01-01 22:00] VITALS: BP 117/52
--- NOTE | 2018-01-01 22:00 | NUR ---
RN NOTES: PROVIDED PRUNE JUICE TO HELP PT MOVE HIS BOWEL, PT ALREADY HAD COLACE.
--- NOTE | 2018-01-01 22:30 | NUR ---
RN NOTES: TRIED ANOTHER IV REINSERTION, BUT STILL NOT SUCCESSFUL. THIS TIME, PT REFUSED TO BE POKE AGAIN AND STATED HE DOESNT WANT ANYBODY POKING HIM AGAIN UNLESS ITS MIDLINE INSERTION. EVERYTHING TRANSLATED BY BRIANNA XAVIER.
[2018-01-01 23:00] VITALS: BP 117/61
--- NOTE | 2018-01-01 23:00 | NUR ---
RN NOTES: ENCOURAGED PT TO HAVE IV REINSERTION, BUT PT REFUSED, MD AWARE, UNABLE TO ADMINISTER THE ALBUMIN PT HAS NO IV ACCESS
--- NOTE | 2018-01-02 | NUR ---
RN NOTES: CALLED [facility] RN FOR IV REINSERTION, PT HARD STICK, PT REFUSED STATED BEFORE HE HAS MIDLINE, AND HE WOULD LIKE TO HAVE ONE IN THE MORNING, HE STATED HE DOESN'T WANT ANYBODY TO POKE HIM ANYMORE. INFORMED DIRECTOR PHYSICAL THERAPY STACEY,WILL OBTAIN ORDER FOR MIDLINE INSERTION FROM
--- NOTE | 2018-01-02 03:17 | NUR ---
RN NOTES: CONTACTED MD MANAGER PACKAGING ABOUT PT'S REQUEST FOR MIDLINE, AND REFUSAL FOR PERIPHERAL IV REINSERTION, PER MD OKAY TO ORDER MIDLINE
--- NOTE | 2018-01-02 03:44 | NUR ---
RN NOTES: CONTACTED RN SUP PASCUAL, REGARDING ORDER FOR MIDLINE INSERTION PER MD, INFORMED ABOUT SITUATION OF THE PT, MULTIPLE IV ATTEMPTS MADE BUT UNSUCCESSFUL, PT IS A DIALYSIS PT, RIGHT ARM HAD HD ACCESS, ONLY LEFT ARM CAN BE USE FOR IV INSERTION, PT HARD TO STICK, PT WILL BE GOING FOR SCALP RESECTION ON WEDNESDAY, [PER RN SUP "WE DON'T DO MIDLINE ANYMORE, ONLY PICC LINE, BUT WILL PUT PT ON THE LIST TO SEE WHAT WE CAN DO AND A PICC LINE RN WILL BE COMING TODAY TO ICU" STATED BY RN SUP. INFORMED CONFERENCE PLANNER STACEY.
--- NOTE | 2018-01-02 06:43 | NUR ---
RN CLOSING NOTES: PT IN BED, AWAKE, REMAINS A/O X3 ON RA RESPIRATION EVEN AND UNLABORED, DENIES ANY PAIN OR DISCOMFORT AT THIS TIME. WOUND VAC DRESSING REMAINS IN PLACED, C/D/I, WOUND VAC REMAINS AT 125MMHG CONTINUOUS. PT REMAINS TO REFUSED BURN NETTING DESPITE PROVIDING EDUCATION. NO IV ACCESS, PT REFUSING, ONLY PREFERS MIDLINE, ORDER IN PLACED, RN SUP AWARE OF THE ORDER. MD AWARE. REFUSED SCD. PER REPORT PROCEDURE TO BE DONE ON WEDNESDAY AND WILL NEED A NEW CONSENT. VS REMAINS STABLE, NEEDS ATTENDED. SAFETY PRECAUTIONS FOR FALL REMAINS ENGAGED. CALL LIGHT IN REACH. WILL ENDORSE TO DAY RN FOR ELSIE.
--- NOTE | 2018-01-02 07:20 | NUR ---
RN OPENING NOTES RECEIVED PT. IN BED A&OX3. BREATHING UNLABORED, AND EVENLY ON ROOM AIR. NO S/S OF ACUTE DISTRESS. NO IV ACCESS AT THIS TIME, AND MD AWARE. PT. IS AWAITING A MIDLINE INSERTION. CONTINUE TO HOLD ELIQUIS FOR POSSIBLE SCALP REACTION PROCEDURE ON 01/03. PT. HAS A WOUND VAC ATTACHED TO SCALP RUNNING AT 125 MMHG, NO NEW OUTPUT CHANGES FROM PREVIOUS SHIFT. PT. HAS DIALYSIS ACCESS ON RIGHT ARM AND SIGN ABOVE BED TO AVOID BLOOD DRAW, AND BP ON RIGHT ARM. BED IS IN LOWEST, AND LOCKED POSITION. 2 SIDE RAILS UP, AND INSTRUCTED PT. TO USE CALL LIGHT FOR ASSISTANCE. ALL NEEDS MET. WILL CONTINUE TO ASSESS AND MONITOR.
[2018-01-02] MEDS: PANTOPRAZOLE 40 MG TABLET.DR PO SCH (07:37)
[2018-01-02] MEDS: SEVELAMER CARBONATE 800 MG TABLET PO SCH ×3 (07:38→17:39)
[2018-01-02 08:00] VITALS: BP 106/60
[2018-01-02] MEDS: METOPROLOL TARTRATE 25 MG TABLET PO SCH (09:00)
[2018-01-02] MEDS: VIT B CMPLX 3/FA/VIT C/BIOTIN 1 TAB TABLET PO SCH (09:04)
[2018-01-02] MEDS: FERROUS SULFATE (325 MG) 325 MG/TAB TABLET PO SCH (09:04)
[2018-01-02] MEDS: FOLIC ACID 1 MG TABLET PO SCH (09:04)
[2018-01-02] MEDS: DOCUSATE SODIUM 100 MG CAPSULE PO SCH (09:04)
[2018-01-02 16:00] VITALS: BP 105/65
--- NOTE | 2018-01-02 19:20 | NUR ---
RN OPENING NOTES RECEIVED PT. IN BED A&OX3. BREATHING UNLABORED, AND EVENLY ON ROOM AIR. NO S/S OF RESPIRATORY DISTRESS.CONTINUE TO HOLD ELIQUIS FOR POSSIBLE SCALP REACTION PROCEDURE ON 01/03. PT. HAS A WOUND VAC ATTACHED TO SCALP RUNNING AT 125 MMHG, WITH OUTPUT 80 ML. PT ON DIALYSIS WITH ACCESS ON RIGHT ARM , AND BP ON RIGHT ARM. BED IS IN LOWEST, AND LOCKED POSITION. 2 SIDE RAILS UP,CALL LIGHT WITHIN REACH
[2018-01-02 20:00] VITALS: BP_SYST 113; BP_SYST 115; BP_DIAS 67
--- NOTE | 2018-01-02 20:00 | NUR ---
NO IV LINE AT THIS TIME, MD AWARE. PT AWAITING FOR MIDLINE TOMORROW .
--- NOTE | 2018-01-02 20:01 | NUR ---
RN CLOSING NOTES PT. IS IN BED A&OX3. FAMILY AT BEDSIDE, BREATHING UNLABORED, AND EVENLY ON ROOM AIR. NO S/S OF ACUTE DISTRESS. NO IV ACCESS AT THIS TIME, AND MD AWARE. PT. IS AWAITING A MIDLINE INSERTION. CONTINUE TO HOLD ELIQUIS FOR POSSIBLE SCALP REACTION PROCEDURE ON 01/03. PT. HAS A WOUND VAC ATTACHED TO SCALP RUNNING AT 125 MMHG, 50 CC OF NEW OUTPUT. PT. HAS DIALYSIS ACCESS ON RIGHT ARM AND SIGN ABOVE BED TO AVOID BLOOD DRAW, AND BP ON RIGHT ARM. BED IS IN LOWEST, AND LOCKED POSITION. 2 SIDE RAILS UP, AND INSTRUCTED PT. TO USE CALL LIGHT FOR ASSISTANCE. ALL NEEDS MET. WILL CONTINUE TO ASSESS AND MONITOR. PLAN FOR HD 01/03/18.
[2018-01-02] MEDS: ATORVASTATIN 40 MG TABLET PO SCH (23:46)
--- NOTE | 2018-01-03 06:24 | NUR ---
MS RN CLOSING NOTES PT IN BED A&OX3. BREATHING UNLABORED, AND EVENLY ON ROOM AIR. NO S/S OF RESPIRATORY DISTRESS.POSSIBLE SCALP RESECTION PROCEDURE ON 01/03. PT ON NPO SINCE MIDNIGHT. PT HAS A WOUND VAC ATTACHED TO SCALP RUNNING AT 125 MMHG, WITH OUTPUT 85 ML. PT ON DIALYSIS WITH ACCESS ON RIGHT ARM. PT HAS NO IV LINE. WAITING FOR MIDLINE INSERTION ON 01/03. BED IS IN LOWEST, AND LOCKED POSITION, 2 SIDE RAILS UP,CALL LIGHT WITHIN REACH. WILL ENDORSE TO NEXT SHIFT NURSE.
--- NOTE | 2018-01-03 07:25 | NUR ---
RN OPENING NOTES PT. IS NPO SINCE MIDNIGHT FOR SURGICAL PROCEDURE TODAY. PT. IS IN BED A&OX3. FAMILY AT BEDSIDE. BREATHING UNLABORED, AND EVENLY ON ROOM AIR. NO S/S OF ACUTE DISTRESS. NO IV ACCESS AT THIS TIME, AND MD AWARE. MIDLINE INSERTION WAS CANCELLED YESTERDAY PER STRUCTURER ORDERS. CONTINUE TO HOLD ELIQUIS FOR SURGICAL REACTION PROCEDURE TODAY. PT. HAS A WOUND VAC ATTACHED TO SCALP RUNNING AT 125 MMHG, TOTAL OUTPUT 100 CC. PT. HAS DIALYSIS ACCESS ON RIGHT ARM AND SIGN ABOVE BED TO AVOID BLOOD DRAW, AND BP ON RIGHT ARM. BED IS IN LOWEST, AND LOCKED POSITION. 2 SIDE RAILS UP, AND INSTRUCTED PT. TO USE CALL LIGHT FOR ASSISTANCE. ALL NEEDS MET. WILL CONTINUE TO ASSESS
[2018-01-03] MEDS: PANTOPRAZOLE 40 MG TABLET.DR PO SCH (07:30)
[2018-01-03 07:33] LABS: CALCIUM, SERUM 8.9 mg/dL (8.5-10.1); CARBON DIOXIDE 29 mmol/L (21-32); CHLORIDE 98 mmol/L (98-107); GLUCOSE 80 mg/dL (74-106); POTASSIUM 4.7 mmol/L (3.5-5.1); SODIUM SERUM 137 mmol/L (136-145); UREA NITROGEN, BLOOD 56 mg/dL (7-18)
[2018-01-03 07:34] LABS: CREATININE 8.4 mg/dL (0.6-1.3)
[2018-01-03 07:45] LABS: BASOPHILS % (AUTO) 0.2 % (0.0-2.0); EOSINOPHILS % (AUTO) 6.8 % (0.0-6.0); HEMATOCRIT 28 % (39-51); HEMOGLOBIN 9.5 g/dL (13.5-17.5); LYMPHOCYTES # (AUTO) 1.3 /CMM (0.8-4.8); LYMPHOCYTES % (AUTO) 22.7 % (20.0-44.0); MEAN CORPUSCULAR HEMOGLOBIN 33 PG (26.0-33.0); MEAN CORPUSCULAR HGB CONC 34 g/dl (31.0-36.0); MEAN CORPUSCULAR VOLUME 97 fL (80-96); MONOCYTES # (AUTO) 0.5 /CMM (0.1-1.30); MONOCYTES % (AUTO) 8.3 % (2.0-12.0); NEUTROPHILS # (AUTO) 3.6 /CMM (1.8-8.9); PLATELET COUNT (AUTO) 147 /CMM (150-450); RDW COEFFICIENT OF VARIATION 16.3 (11.5-15.0); RED BLOOD CELL COUNT(AUTO) 2.85 MIL/uL (4.5-6.0); WHITE BLOOD COUNT (AUTO) 5.8 K/uL (4.3-11.0)
[2018-01-03 08:00] VITALS: BP 107/55
[2018-01-03] MEDS: SEVELAMER CARBONATE 800 MG TABLET PO SCH ×3 (08:00→17:39)
[2018-01-03 09:00] VITALS: BP 107/55
[2018-01-03] MEDS: FERROUS SULFATE (325 MG) 325 MG/TAB TABLET PO SCH (09:00)
[2018-01-03] MEDS: VIT B CMPLX 3/FA/VIT C/BIOTIN 1 TAB TABLET PO SCH (09:00)
[2018-01-03] MEDS: DOCUSATE SODIUM 100 MG CAPSULE PO SCH (09:00)
[2018-01-03] MEDS: FOLIC ACID 1 MG TABLET PO SCH (09:00)
[2018-01-03] MEDS: METOPROLOL TARTRATE 25 MG TABLET PO SCH (09:00)
[2018-01-03] MEDS ORDERED: LIDOCAINE 1%-EPI 1:100,000 20 ML VIAL ONE (12:42)
[2018-01-03] MEDS ORDERED: BUPIVACAINE 0.25% 75 MG/30 ML VIAL ONE (12:42)
--- NOTE | 2018-01-03 13:38 | NUR ---
PT. LEFT ROOM 307 BED 1 FOR SURGICAL PROCEDURE. OR NURSES LEFT WITH PT.'S CHART, AND FAMILY AT BEDSIDE.
--- NOTE | 2018-01-03 15:45 | NUR ---
PT. RETURNED FROM SURGERY TO ROOM 307 BED2. PT. IS A&OX4, AND STABLE. PT. HAS WOUND VAC RUNNING AT 125 MMHG. HEMODIALYSIS NURSE WAS NOTIFIED PT. RETURNED FROM SURGERY. PT. HR WAS ELEVATED 125 BPM, PT. DENIES PAIN. CONTACTED [employer] AND TOP CARRIER WILL BE PAGED. PT. IS ABLE SIP ON WATER WITHOUT DIFFICULTY. POST OP ORDERS, RESUME DIET, AND HOLD PRADAXA, AND ALL BLOOD THINNERS.
[2018-01-03 16:00] VITALS: BP 107/70
--- NOTE | 2018-01-03 16:30 | NUR ---
RN NOTES POST OP PT.'S HR WAS ELEVATED 120-130 BPM, COMPANY DANCER WAS NOTIFIED, NEW ORDERS GIVEN TO INFUSE 500 CC OF NS BOLUS. PT. WAS PLACED ON TELE MONITOR, AND TELE READING UNCONTROLLED ATRIAL FIBRILLATION. COMPANY DANCER WAS INFORMED AND EKG WAS ORDERED. EKG WAS READ TO COMPANY DANCER, NEW ORDERS GIVEN.
[2018-01-03] MEDS ORDERED: IV NS 0.9% 1,000 ML BAG IV ONE (17:30)
--- NOTE | 2018-01-03 19:20 | NUR ---
MS RN NOTES Report received. Patient received in bed, doing hemodialysis (hemodialysis nurse at bedside). Resection of skin scalp done today by Dr. Jimenez. S/P orders to continue all medications, HOLD pradaxa and all blood thinners. Resume renal standard diet. Will continue to monitor and assess patient.
--- NOTE | 2018-01-03 19:40 | NUR ---
RN CLOSING NOTES PT. IS IN BED A&OX3. BREATHING UNLABORED, AND EVENLY ON ROOM AIR. NO S/S OF ACUTE DISTRESS. NO IV ACCESS AT THIS TIME, AND MD AWARE. PT. RECEIVED HEMODIALYSIS WITH NO OUTPUT. PT. RECEIVED 500 CC OF NORMAL SALINE BOLUS, HR 103 BPM. CONTINUE TO HOLD ALL BLOOD THINNERS, AND PRADAXA PER POST OP ORDERS. PT. HAS RESUMED RENAL DIET FOR DINNER, AND TOLERATED WELL. PT. HAS A WOUND VAC ATTACHED TO SCALP RUNNING AT 125 MMHG, TOTAL OUTPUT 10 CC. NEW IV ACCESS ON LEFT HAND. BED IS IN LOWEST, AND LOCKED POSITION. 2 SIDE RAILS UP, AND INSTRUCTED PT. TO USE CALL LIGHT FOR ASSISTANCE. ALL NEEDS MET. WILL ENDORSE REPORT TO NURSE.
[2018-01-03 20:00] VITALS: BP 106/66
--- NOTE | 2018-01-03 20:05 | NUR ---
MS RN - S/P HEMODIALYSIS NOTES Per Hemodialysis nurse, no output. Patient is tachycardic HR 100-102s. Tele showing A-fib uncontrolled; HR 116-120s. On heart monitoring s/p scalp resection only. Patient is sitting by the edge of the bed with and other family members at bedside. No complaints of pain, nausea, dizziness noted or reported. Safety measures in place. Advise to call for any assistance. Will continue to monitor and assess patient
[2018-01-03] MEDS: ATORVASTATIN 40 MG TABLET PO SCH (21:21)
--- NOTE | 2018-01-03 21:55 | NUR ---
MS RN - NEW ORDER NOTED Informed Dr. Raffy Diego of patient's uncontrolled A-fib; HR 120-130s. New order to transfer patient to [facility]. Start amniodarone drip continuously over night, cardio consult in the morning and 2D ECHO. Charge Nurse made aware of orders
--- NOTE | 2018-01-03 22:06 | NUR ---
MS PAIZ - TRANSFER/REPORT NOTES Report given to Ana from [facility]. Transfer to [facility] per Dr. Raffy George with Amniodarone drip continuously to control afib over night, cardio consult for tomorrow and 2D ECHO if not done yet. Addendum: 01/03/18 at 2213 by MATHIEU KUMAR RN RN - TRANSFER/REPORT NOTES Report given to Ana from [facility]. Transfer to [facility] per Dr. Raffy George to start on Amniodarone drip continuously to control afib over night, cardio consult for tomorrow and 2D ECHO if not done yet. Addendum: 01/03/18 at 2214 by MATHIEU KUMAR RN Transfer to [facility], Room [facility]
[2018-01-03] MEDS ORDERED: AMIODARONE 900 MG in IV D5W 482 ML IV PRN (22:30)
[2018-01-03] MEDS ORDERED: AMIODARONE 150 MG/3 ML VIAL IV ONE (22:55)
--- NOTE | 2018-01-03 23:30 | NUR ---
MS RN - TRANSFER NOTES Patient transferred to [facility]: CHENCHO Perez. Wound Vac @125mmHg with output of 50cc prior to transfer
--- NOTE | 2018-01-03 23:30 | NUR ---
RN NOTE RECEIVE PATIENT FROM MED SURG, NO DISTRESS NOTED, NO PAIN OR DISCOMFORT NOTED, ALERT/ORIENTED X4, WOLOF SPEAKING, UNCONTROLLED A-FIB WITH A HR OF 122, ON AMIODORONE DRIPS, TOLERATES WELL, VITAL SIGNS ARE STABLE, LEFT HAND 22 GAUGE, NO S/S OF INFECTION/INFILTRATION NOTED, ALL SAFETY MEASURES TAKE, BED ALARM IS ACTIVATED AND CHECKED PRIOR, ALL BELONGINGS WITHIN REACH, INSTRUCTED PATIENT TO USE CALL LIGHT, BED IN THE LOWEST POSITION, CALL LIGHT WITHIN REACH, SIDE RAILS UP X 2
[2018-01-04] VITALS (7 sets, daily range): BP systolic 92–138; BP diastolic 45–70
--- NOTE | 2018-01-04 06:41 | NUR ---
RN NOTE PATIENT RESTED WELL AT NIGHT, NO PAIN OR DISCOMFORT NOTED, ON AMIODORON CONTINUES DRIPS PER PROTOCOL, PATIENT IS ALERT/ORIENTED REQUESTED TO SEAT IN THE CHAIR, ALL SAFETY MEASURES TAKEN, WILL ENDORSE TO AM SHIFT FOR ELSIE
--- NOTE | 2018-01-04 07:40 | NUR ---
TD OPENING RECEIVED PATIENT URDU SPEAKING ONLY. SITTING IN CHAIR. PATIENT DENIES SOB, DIFFICULTY BREATHING OR PAIN. AMIO DRIP PER PROTOCOL RUNNING WITH IV SITE C/D/I/P. PATIENT CONTROLLED AFIB 80'S AT THIS TIME. WOUND VAC TO PROCEDURE SITE ON SCALP INTACT AND SUCTION PRESENT. 50ML IN CANISTER AT THIS TIME; WILL MONITOR OUTPUT. DRAINAGE CLEAR RED; NO S/S INFECTION. PER NIGHT RN PATIENT IS NON COMPLIANT WITH SAFETY EDUCATION AND DIRECTION. EDUCATED PATIENT AGAIN ON FALL SAFETY AND PREVENTION. CALL LIGHT IN HAND AND REMINDED TO CALL FOR ASSISTANCE WHEN WANTING TO GET BACK TO BED. PATIENT NODS IN UNDERSTANDING. ALL NEEDS ASSESSED AND MET. SAFETY, SKIN, AND ASPIRATION PRECAUTIONS IN PLACE. WILL ROUND PRN
[2018-01-04] MEDS: DOCUSATE SODIUM 100 MG CAPSULE PO SCH (08:41)
[2018-01-04] MEDS: FERROUS SULFATE (325 MG) 325 MG/TAB TABLET PO SCH (08:41)
[2018-01-04] MEDS: METOPROLOL TARTRATE 25 MG TABLET PO SCH (08:41)
[2018-01-04] MEDS: PANTOPRAZOLE 40 MG TABLET.DR PO SCH (08:41)
[2018-01-04] MEDS: FOLIC ACID 1 MG TABLET PO SCH (08:41)
[2018-01-04] MEDS: SEVELAMER CARBONATE 800 MG TABLET PO SCH ×3 (08:41→17:32)
[2018-01-04] MEDS: VIT B CMPLX 3/FA/VIT C/BIOTIN 1 TAB TABLET PO SCH (08:41)
--- NOTE | 2018-01-04 10:40 | NUR ---
DR FRITZ AT BEDSIDE. UPDATED THAT PATIENT WAS TRANSFERRED TO [facility] FOR UNCONTROLLED AFIB 130'S-140'S. AT THIS TIME PATIENT CONTROLLED AFIB 60'S-70'S. PER MD Luis/Nahun QUIROZ AND TRANSFER TO [facility]. DARREL VERDE FROM HIS PERSPECTIVE
--- NOTE | 2018-01-04 11:08 | NUR ---
PATIENT HAVING POOR ORAL INTAKE. NOTIFIED DIETARY. PER DIETARY OK TO START PATIENT ON NEPRO BID. PATIENT AGREES AND WILL TAKE
[2018-01-04] MEDS: NEPRO VAN 237 ML CAN PO SCH ×2 (12:49→17:32)
--- NOTE | 2018-01-04 19:12 | NUR ---
all due meds given all needs met. wound vac per order and intact. safety, skin, and aspiration precautions observed throughout day. patient stable at this time. care endorsed to rn for ken.
--- NOTE | 2018-01-04 19:25 | NUR ---
RN M/S NOTE PATIENT RECEIVED SITTING IN CHAIR, FAMILY AT BEDSIDE, NO S/SX OF RESPIRATORY OR CARDIAC DISTRESS, AOX4, SPEECH CLEAR, WOUND VAC ON SCALP AT 125MMHG, TOLERATING WELL DRAINING SANGUINOUS FLUIDS, L HAND SL #22G, PATENT FLUSHING WELL, DENIES PAIN, SAFETY MAINTAINED AT ALL TIMES, CALL LIGHT WITHIN REACH, WILL CONTINUE TO MONITOR FOR ANY CHANGES IN CONDITION.
[2018-01-04] MEDS: ATORVASTATIN 40 MG TABLET PO SCH (21:25)
[2018-01-05 04:00] VITALS: BP 90/55
--- NOTE | 2018-01-05 07:15 | NUR ---
MS/RN INITIAL NOTES RECEIVED PT IN BED, ALERT AND VERBALLY RESPONSIVE IN [place]. ON ROOM AIR, TOLERATING WELL, NO SOB NOTED. NO C/O PAIN AT THIS TIME. AFEBRILE. WITH INTACT LHAND SL. NO SIGNS OF INFECTION NOTED. WITH INTACT KAYLA AV. WITH INTACT WOUND DRESSING CONNECTED TO WOUND VAC. SAFETY MEASURES IN PLACED. CALL LIGHT WITHIN REACH. NEEDS ATTENDED
[2018-01-05 08:00] VITALS: BP 92/46
[2018-01-05] MEDS: PANTOPRAZOLE 40 MG TABLET.DR PO SCH (08:15)
[2018-01-05] MEDS: SEVELAMER CARBONATE 800 MG TABLET PO SCH ×2 (08:16→13:00)
[2018-01-05] MEDS: DOCUSATE SODIUM 100 MG CAPSULE PO SCH (08:24)
[2018-01-05] MEDS: METOPROLOL TARTRATE 25 MG TABLET PO SCH (08:24)
[2018-01-05] MEDS: FOLIC ACID 1 MG TABLET PO SCH (08:24)
[2018-01-05] MEDS: VIT B CMPLX 3/FA/VIT C/BIOTIN 1 TAB TABLET PO SCH (08:24)
[2018-01-05] MEDS: FERROUS SULFATE (325 MG) 325 MG/TAB TABLET PO SCH (08:24)
[2018-01-05] MEDS: NEPRO VAN 237 ML CAN PO SCH (08:26)
[2018-01-05 16:00] VITALS: BP 96/60
--- NOTE | 2018-01-05 16:20 | NUR ---
RN D/C NOTES D/C PT IN STABLE CONDITION. ASSISTED BY TV HOST VIA W/C, D/C ACCOMPANIED BY FAMILY IN PRIVATE CAR. AFEBRILE. NO C/O PAIN. NO SIGNS OF ACUTE DISTRESS. D/C WITH PORTABLE WOUND VAC. D/C INSTRUCTION GIVEN AND EXPLAINED TO PT AND DTR. VERBALIZED UNDERSTANDING. RFA SL D/C, PRESSURE DRESSING APPLIED. NO SIGNS OF INFECTION/BLEEDING NOTED. ALL NEEDS ANTICIPATED. D/C
== END 2018-01-05 16:24 | disposition home or self-care (01) | DRG 576 ==
LOC: DS 11:10 → MED 11:11 → TELE 16:48 → MED 12-31 09:12 → TELE-TD 01-03 23:15 → MEDSG1 01-04 16:05
PROVIDERS: ADMIT Nurse Practitioner Acute Care; ATTEND Nurse Practitioner Acute Care
PROC: 5A1D70Z Performance of Urinary Filtration, Intermittent, Less than 6 Hours Per Day (ICD-10-PCS; 2018-01-01)
PROC: 0HB0XZZ Excision of Scalp Skin, External Approach (ICD-10-PCS; 2018-01-03)
PROC: 5A1D70Z Performance of Urinary Filtration, Intermittent, Less than 6 Hours Per Day (ICD-10-PCS; 2018-01-03)
PROC: 0HX0XZZ Transfer Scalp Skin, External Approach (ICD-10-PCS; principal; 2018-01-03 14:19)
DX: C44.42 Squamous cell carcinoma of skin of scalp and neck (principal); N18.6 End stage renal disease; I12.0 Hypertensive chronic kidney disease with stage 5 chronic kidney disease or end stage renal disease; I48.92 Unspecified atrial flutter; Z99.2 Dependence on renal dialysis; E78.5 Hyperlipidemia, unspecified; K21.9 Gastro-esophageal reflux disease without esophagitis; Z87.891 Personal history of nicotine dependence; I48.91 Unspecified atrial fibrillation; D63.8 Anemia in other chronic diseases classified elsewhere; I34.0 Nonrheumatic mitral (valve) insufficiency; I35.1 Nonrheumatic aortic (valve) insufficiency; I44.0 Atrioventricular block, first degree; I95.9 Hypotension, unspecified; E83.9 Disorder of mineral metabolism, unspecified; E86.1 Hypovolemia; L82.1 Other seborrheic keratosis; M10.9 Gout, unspecified
CPT/HCPCS: 36415; 80048-TC; 85025-TC; 85610-TC; 85730-TC; 87081-TC; 88305-TC; 90935-TC; 93307-TC; A4216; A6403; J0282; J3490; J7030; J7040; J7060; P9047; Z7610

== ENCOUNTER 2018-01-06 13:54 | Outpatient (CLI) | payer MEDICARE, OTHER ==
[~2018-01-06 13:54] MED LIST changes: -ALLA266C2 TP; +APIX2.5T PO; -ASPI-1169 PO; +DOCU-141 PO; +FERR325T23 PO; +FOLI0.8T23 PO; +FOLI1TAB16 PO
== END 2018-01-06 23:59 | disposition home health service (06) ==
LOC: WOU 13:54
PROVIDERS: ATTEND Surgery
DX: Z48.3 Aftercare following surgery for neoplasm (principal); C44.42 Squamous cell carcinoma of skin of scalp and neck; T81.89XA Other complications of procedures, not elsewhere classified, initial encounter
CPT/HCPCS: 11042; 11043; 97605-TC; A6402; Z7610

== ENCOUNTER 2018-01-13 13:10 | Outpatient (CLI) | payer MEDICARE, OTHER | END 2018-01-13 23:59 | disposition home health service (06) | LOC: WOU 13:10 | PROVIDERS: ATTEND Surgery | DX: Z48.3 Aftercare following surgery for neoplasm (principal); C44.42 Squamous cell carcinoma of skin of scalp and neck; T82.7XXD Infection and inflammatory reaction due to other cardiac and vascular devices, implants and grafts, subsequent encounter; T81.89XA Other complications of procedures, not elsewhere classified, initial encounter | CPT/HCPCS: 11043; 11046; 97605; A6253; A6402; Z7610 ==

== ENCOUNTER 2018-01-20 13:00 | Outpatient (CLI) | payer MEDICARE, OTHER | END 2018-01-20 23:59 | disposition home health service (06) | LOC: WOU 13:00 | PROVIDERS: ATTEND Surgery | DX: Z48.3 Aftercare following surgery for neoplasm (principal); C44.42 Squamous cell carcinoma of skin of scalp and neck; S01.00XA Unspecified open wound of scalp, initial encounter; X58.XXXA Exposure to other specified factors, initial encounter; Y92.89 Other specified places as the place of occurrence of the external cause | CPT/HCPCS: 11042; 11045; 97605-TC; A6253; A6402; Z7610 ==

== ENCOUNTER 2018-01-24 13:29 | Outpatient (CLI) | payer MEDICARE, OTHER | END 2018-01-24 23:59 | disposition home health service (06) | LOC: WOU 13:29 | PROVIDERS: ATTEND Surgery | DX: Z48.3 Aftercare following surgery for neoplasm (principal); C44.02 Squamous cell carcinoma of skin of lip; S01.00XA Unspecified open wound of scalp, initial encounter; X58.XXXA Exposure to other specified factors, initial encounter; Y92.89 Other specified places as the place of occurrence of the external cause | CPT/HCPCS: 11043; 11046; A6253; A6402; Z7610 ==

== ENCOUNTER 2018-01-25 09:51 | Outpatient (CLI) | payer MEDICARE, OTHER ==
[2018-01-25 10:17] LABS: BASOPHILS % (AUTO) 0.5 % (0.0-2.0); EOSINOPHILS % (AUTO) 5.8 % (0.0-6.0); HEMATOCRIT 31 % (39-51); HEMOGLOBIN 10.1 g/dL (13.5-17.5); LYMPHOCYTES # (AUTO) 1.1 /CMM (0.8-4.8); LYMPHOCYTES % (AUTO) 18.5 % (20.0-44.0); MEAN CORPUSCULAR HEMOGLOBIN 32 PG (26.0-33.0); MEAN CORPUSCULAR HGB CONC 32 g/dl (31.0-36.0); MEAN CORPUSCULAR VOLUME 99 fL (80-96); MONOCYTES # (AUTO) 0.5 /CMM (0.1-1.30); MONOCYTES % (AUTO) 8.7 % (2.0-12.0); NEUTROPHILS % (AUTO) 66.5 % (43.0-81.0); PLATELET COUNT (AUTO) 159 /CMM (150-450); RDW COEFFICIENT OF VARIATION 17.6 (11.5-15.0); RED BLOOD CELL COUNT(AUTO) 3.19 MIL/uL (4.5-6.0); WHITE BLOOD COUNT (AUTO) 5.9 K/uL (4.3-11.0)
[2018-01-25 10:27] LABS: CALCIUM, SERUM 8.5 mg/dL (8.5-10.1); CARBON DIOXIDE 30 mmol/L (21-32); CHLORIDE 95 mmol/L (98-107); CREATININE 5.5 mg/dL (0.6-1.3); GLUCOSE 135 mg/dL (74-106); POTASSIUM 3.1 mmol/L (3.5-5.1); SODIUM SERUM 134 mmol/L (136-145); UREA NITROGEN, BLOOD 50 mg/dL (7-18)
[2018-01-25 10:36] LABS: INR 1.16 (0.87-1.13)
== END 2018-01-25 23:59 | disposition home or self-care (01) ==
LOC: LAB 09:51
PROVIDERS: ATTEND Surgery
DX: Z01.818 Encounter for other preprocedural examination (principal); S01.81XD Laceration without foreign body of other part of head, subsequent encounter; I12.0 Hypertensive chronic kidney disease with stage 5 chronic kidney disease or end stage renal disease; N18.6 End stage renal disease; Z79.82 Long term (current) use of aspirin; X58.XXXD Exposure to other specified factors, subsequent encounter
CPT/HCPCS: 36415; 80048-TC; 85025-TC; 85610-TC; 85730-TC

== ENCOUNTER 2018-01-31 13:18 | Outpatient (CLI) | payer MEDICARE, OTHER | END 2018-01-31 23:59 | disposition home health service (06) | LOC: WOU 13:18 | PROVIDERS: ATTEND Surgery | DX: T81.89XA Other complications of procedures, not elsewhere classified, initial encounter (principal); Z85.828 Personal history of other malignant neoplasm of skin; I10 Essential (primary) hypertension | CPT/HCPCS: 97605; A6253; A6402 ×2; G0463; Z7610 ==

== ENCOUNTER 2018-02-07 12:45 | Outpatient (CLI) | payer MEDICARE, OTHER | END 2018-02-07 23:59 | disposition home health service (06) | LOC: WOU 12:45 | PROVIDERS: ATTEND Surgery | DX: Z48.3 Aftercare following surgery for neoplasm (principal); T81.89XA Other complications of procedures, not elsewhere classified, initial encounter; C44.42 Squamous cell carcinoma of skin of scalp and neck; R21 Rash and other nonspecific skin eruption | CPT/HCPCS: 15004; 15115; A6402; Z7610 ==

== ENCOUNTER 2018-02-10 13:57 | Outpatient (CLI) | payer MEDICARE, OTHER | END 2018-02-10 23:59 | disposition home health service (06) | LOC: WOU 13:57 | PROVIDERS: ATTEND Surgery | DX: Z48.3 Aftercare following surgery for neoplasm (principal); C44.42 Squamous cell carcinoma of skin of scalp and neck; R21 Rash and other nonspecific skin eruption; T82.7XXD Infection and inflammatory reaction due to other cardiac and vascular devices, implants and grafts, subsequent encounter | CPT/HCPCS: A6402; G0463; Z7610 ==

== ENCOUNTER 2018-02-14 14:00 | Outpatient (CLI) | payer MEDICARE, OTHER | END 2018-02-14 23:59 | disposition home health service (06) | LOC: WOU 14:00 | PROVIDERS: ATTEND Surgery | DX: Z48.3 Aftercare following surgery for neoplasm (principal); C44.42 Squamous cell carcinoma of skin of scalp and neck; T81.89XD Other complications of procedures, not elsewhere classified, subsequent encounter; R21 Rash and other nonspecific skin eruption | CPT/HCPCS: A6253; A6402; G0463; Z7610 ==

== ENCOUNTER 2018-02-24 13:22 | Outpatient (CLI) | payer MEDICARE, OTHER | END 2018-02-24 23:59 | disposition home health service (06) | LOC: WOU 13:22 | PROVIDERS: ATTEND Surgery | DX: Z48.3 Aftercare following surgery for neoplasm (principal); C44.42 Squamous cell carcinoma of skin of scalp and neck; S01.00XA Unspecified open wound of scalp, initial encounter; X58.XXXA Exposure to other specified factors, initial encounter; Y92.89 Other specified places as the place of occurrence of the external cause | CPT/HCPCS: 11042; A6402 ×3; Z7610 ==

== ENCOUNTER 2018-03-03 12:32 | Outpatient (CLI) | payer MEDICARE, OTHER | END 2018-03-03 23:59 | disposition home health service (06) | LOC: WOU 12:32 | PROVIDERS: ATTEND Surgery | DX: Z48.3 Aftercare following surgery for neoplasm (principal); Z09 Encounter for follow-up examination after completed treatment for conditions other than malignant neoplasm; C44.42 Squamous cell carcinoma of skin of scalp and neck; T86.821 Skin graft (allograft) (autograft) failure; T81.89XA Other complications of procedures, not elsewhere classified, initial encounter | CPT/HCPCS: 11043; A6402 ×3; Z7610 ==

== ENCOUNTER 2018-03-10 12:25 | Outpatient (CLI) | payer MEDICARE, OTHER | END 2018-03-10 23:59 | disposition home health service (06) | LOC: WOU 12:25 | PROVIDERS: ATTEND Surgery | DX: Z48.3 Aftercare following surgery for neoplasm (principal); C44.42 Squamous cell carcinoma of skin of scalp and neck; T81.89XA Other complications of procedures, not elsewhere classified, initial encounter | CPT/HCPCS: 11043; A6207; A6402; Z7610 ==

== ENCOUNTER 2018-03-14 13:27 | Outpatient (CLI) | payer MEDICARE, OTHER ==
[~2018-03-14 13:27] MED LIST changes: +ALBUTEROL FS 2.5 MG/0.5 ML VIAL.NEB ONE; +IPRATROPIUM NEB FS 0.5 MG/2.5 ML AMPUL.NEB ONE
== END 2018-03-14 23:59 | disposition home health service (06) ==
LOC: WOU 13:27
PROVIDERS: ATTEND Surgery
DX: T86.821 Skin graft (allograft) (autograft) failure (principal); C44.42 Squamous cell carcinoma of skin of scalp and neck; T81.89XA Other complications of procedures, not elsewhere classified, initial encounter; E46 Unspecified protein-calorie malnutrition; Z68.28 Body mass index [BMI] 28.0-28.9, adult; I12.9 Hypertensive chronic kidney disease with stage 1 through stage 4 chronic kidney disease, or unspecified chronic kidney disease; N18.9 Chronic kidney disease, unspecified; Z99.2 Dependence on renal dialysis
CPT/HCPCS: 11042; A6402 ×2; Z7610

== ENCOUNTER 2018-03-17 13:36 | Outpatient (CLI) | payer MEDICARE, OTHER ==
[~2018-03-17 13:36] MED LIST changes: -ALBUTEROL FS 2.5 MG/0.5 ML VIAL.NEB ONE; -IPRATROPIUM NEB FS 0.5 MG/2.5 ML AMPUL.NEB ONE
== END 2018-03-17 23:59 | disposition home health service (06) ==
LOC: WOU 13:36
PROVIDERS: ATTEND Surgery
DX: Z48.3 Aftercare following surgery for neoplasm (principal); T86.821 Skin graft (allograft) (autograft) failure; C44.42 Squamous cell carcinoma of skin of scalp and neck; T81.89XA Other complications of procedures, not elsewhere classified, initial encounter; N19 Unspecified kidney failure; Z99.2 Dependence on renal dialysis; I10 Essential (primary) hypertension; E46 Unspecified protein-calorie malnutrition; Z68.28 Body mass index [BMI] 28.0-28.9, adult
CPT/HCPCS: 11042; A6207; A6402; Z7610

== ENCOUNTER 2018-03-21 14:20 | Outpatient (CLI) | payer MEDICARE, OTHER | END 2018-03-21 23:59 | disposition home health service (06) | LOC: WOU 14:20 | PROVIDERS: ATTEND Surgery | DX: Z48.3 Aftercare following surgery for neoplasm (principal); T81.89XA Other complications of procedures, not elsewhere classified, initial encounter; T86.821 Skin graft (allograft) (autograft) failure; C44.42 Squamous cell carcinoma of skin of scalp and neck; N19 Unspecified kidney failure; Z99.2 Dependence on renal dialysis; I10 Essential (primary) hypertension; E46 Unspecified protein-calorie malnutrition; Z68.28 Body mass index [BMI] 28.0-28.9, adult | CPT/HCPCS: 11042; A6207; A6402; Z7610 ==

== ENCOUNTER 2018-03-24 12:30 | Outpatient (CLI) | payer MEDICARE, OTHER ==
[~2018-03-24 12:30] MED LIST changes: +KETOROLAC TROMETHAMINE INJ 30 MG/ML VIAL ONE; +ONDANSETRON HCL/PF 4 MG/2 ML VIAL ONE
== END 2018-03-24 23:59 | disposition home health service (06) ==
LOC: WOU 12:30
PROVIDERS: ATTEND Surgery
DX: Z48.3 Aftercare following surgery for neoplasm (principal); C44.42 Squamous cell carcinoma of skin of scalp and neck; S01.00XA Unspecified open wound of scalp, initial encounter; X58.XXXA Exposure to other specified factors, initial encounter; Y92.89 Other specified places as the place of occurrence of the external cause; I12.0 Hypertensive chronic kidney disease with stage 5 chronic kidney disease or end stage renal disease; N18.6 End stage renal disease; Z99.2 Dependence on renal dialysis; E46 Unspecified protein-calorie malnutrition; Z68.28 Body mass index [BMI] 28.0-28.9, adult
CPT/HCPCS: 11042; A6207; A6402; Z7610; J1885; J2405